=== PATIENT | female | born 1995 | race Caucasian/White ===

== ENCOUNTER → 2016-12-07 | Outpatient (CLI) | payer BC ==
[~2016-12-07] MED LIST: ACET-2267 PO; BENZ56AE2 TP; DOCU100C37 PO; DOXY100T2 PO; FERR-74 PO; HYDR-3812 PO; IBUP-1773 PO; IBUP-30 PO; MAGN100T6 PO; NA P133E35 PR; ONDA-42 SL; ONDN4T PO; POLY17PO23 GT; PREN1TAB19 PO; PREN1TAB25 PO; SCR1T1 PO; SULF1TAB35 PO
--- NOTE | 2016-12-07 22:36 | Diagnostic Imaging Report ---
Bilateral breast ultrasound. INDICATION: Left nipple inversion. FINDINGS: The retroareolar region and four quadrants of each breast were scanned with no underlying abnormality seen. IMPRESSION: Negative study. Mammography is pending. ACR BI-RADS Category 0: Incomplete. (Needs additional imaging evaluation). Dictated by: Dictated on workstation # [id number]
--- NOTE | 2016-12-07 22:46 | Diagnostic Imaging Report ---
Bilateral diagnostic mammogram. The current study was also evaluated with a Computer Aided Detection (CAD) system. INDICATION: Nipple inversion on the left progressively worsening for one and a half years. No prior studies are available for comparison. This is a baseline study. FINDINGS: The breasts are composed of extremely dense parenchyma which would decrease mammographic sensitivity. There is no discrete mass or suspicious cluster of calcification or architectural distortion identified. IMPRESSION: Extremely dense breasts with no definite focal lesion identified. Ultrasound evaluation was also performed with no underlying abnormality seen. Given the progressive unilateral nipple inversion, an MRI of the breast is recommended for further evaluation. ACR BI-RADS Category 0: Incomplete. (Needs additional imaging evaluation). Result letter will be mailed to the patient. Note: At least 10% of breast cancer is not imaged by mammography. Dictated by: Dictated on workstation # [id number]
== END ==
LOC: RAD 06:48
PROVIDERS: ATTEND Surgery
DX: N64.59 Other signs and symptoms in breast (principal); R92.8 Other abnormal and inconclusive findings on diagnostic imaging of breast
CPT/HCPCS: 77066

== ENCOUNTER 2017-01-24 03:23 | Emergency (ER) | payer BC ==
[~2017-01-24] VITALS: Ht 170.2 cm; Wt 81.6 kg
[2017-01-24] MEDS ORDERED: HYOSCYAMINE 0.125 MG (LEVSIN) TAB ONE (03:29)
[2017-01-24] MEDS ORDERED: PANTOPRAZOLE 40 MG/10 ML (PROTONIX) VIAL ONE (03:29)
[2017-01-24] MEDS ORDERED: ONDANSETRON 4 MG/2 ML (SDV) Z0FRAN ONE (03:29)
[2017-01-24] MEDS ORDERED: ONDANSETRON 4 MG/2 ML (SDV) Z0FRAN IVP ONE (03:30)
[2017-01-24] MEDS ORDERED: LACTATED RINGERS 1,000 ML IV ONE ×2 (03:30→03:33)
[2017-01-24] MEDS ORDERED: HYOSCYAMINE 0.125 MG (LEVSIN) TAB SL ONE (03:30)
[2017-01-24 03:37] LABS: BASOPHILS % (AUTO) 0 % (0-10); EOSINOPHILS # (AUTO) 0.1 10^3/uL (0.0-0.3); EOSINOPHILS % (AUTO) 1 % (0-10); LYMPHOCYTES # (AUTO) 3.2 X 10^3 (1.0-4.0); LYMPHOCYTES % (AUTO) 28 % (12-44); MEAN CORPUSCULAR HEMOGLOBIN 26 PG (25-34); MEAN CORPUSCULAR HGB CONC 33 G/DL (32-36); MEAN CORPUSCULAR VOLUME 78 FL (80-99); MEAN PLATELET VOLUME 9.2 FL (7.4-10.4); MONOCYTES # (AUTO) 0.7 X 10^3 (0.0-1.0); MONOCYTES % (AUTO) 6 % (0-12); NEUTROPHILS # (AUTO) 7.5 X 10^3 (1.8-7.8); NEUTROPHILS % (AUTO) 65 % (42-75); PLATELET COUNT 284 10^3/uL (130-400); RED BLOOD COUNT 5.22 10^6/uL (4.35-5.85); RED CELL DISTRIBUTION WIDTH 14.6 % (10.0-14.5); WHITE BLOOD COUNT 11.5 10^3/uL (4.3-11.0)
[2017-01-24] MEDS ORDERED: PANTOPRAZOLE 40 MG/10 ML (PROTONIX) VIAL IV ONE (03:45)
[2017-01-24] MEDS ORDERED: diphenhydrAMINE 50 MG/ML INJ (BENADRYL) IVP ONE (03:45)
[2017-01-24] MEDS ORDERED: PROMETHAZINE INJ 25 MG/ML (PHENERGAN) AMP IVP ONE (03:45)
[2017-01-24] MEDS ORDERED: diphenhydrAMINE 50 MG/ML INJ (BENADRYL) ONE (03:50)
[2017-01-24] MEDS ORDERED: PROMETHAZINE INJ 25 MG/ML (PHENERGAN) AMP ONE (03:50)
--- NOTE | 2017-01-24 03:51 | ED Abdominal Pain ---
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 patient denies n/v Sepsis Screen: No Definite Risk Source of Information: Patient History of Present Illness Time Seen By Provider: 03:23 Initial Comments PT ARRIVES VIA POV FROM HOME STATES SHE WOKE UP AN HOUR AGO WITH SEVERE, SHARP EPIGASTRIC PAIN THAT RADIATES STRAIGHT THROUGH TO BACK NO NAUSEA/VOMITING/DIARRHEA--HAD A NORMAL BM AN HOUR AGO WITHOUT IMPROVEMENT IN PAIN NO FEVER NO URINARY SYMPTOMS NO HISTORY OF SIMILAR ATE FRITO CHILI PIE AT 1800 LAST EVENING LMP 01/17/17--NORMAL. NO CONTROL. PCP: DR. POPE Allergies and Home Medications Allergies Coded Allergies: morphine (Verified Allergy, Unknown, 07/23/16) Review of Systems Constitutional: diaphoresis, No fever EENTM: No Symptoms Reported Respiratory: No Symptoms Reported Cardiovascular: No Symptoms Reported Gastrointestinal: See HPI, Abdominal Pain, Denies Constipated, Denies Diarrhea , Denies Nausea, Denies Poor Appetite, Denies Poor Fluid Intake, Denies Vomiting Genitourinary: No Symptoms Reported Musculoskeletal: see HPI, back pain Skin: no symptoms reported Psychiatric/Neurological: Anxiety Endocrine: No Symptoms Reported Hematologic/Lymphatic: No Symptoms Reported Past Bokfbkt-Ncuapv-Zbaxje Hx Patient Social History Alcohol Use: Denies Use Recreational Drug Use: No Smoking Status: Never a Smoker Recent Foreign Travel: No Contact w/Someone Who Travel: No Recent Infectious Disease Expo: No Recent Hopitalizations: No Immunizations Up To Date Tetanus Booster (TDap): Unknown PED Vaccines UTD: No Seasonal Allergies Seasonal Allergies: No Surgeries HX Surgeries: Yes (INTESTINAL SURGERIES ; RIGHT SALPINGO-OOPHORECTOMY FOR OVARIAN CYST) Surgeries: Abdominal, Bowel Surgery, Oophorectomy Respiratory Hx Respiratory Disorders: No Cardiovascular Hx Cardiac Disorders: No Neurological Hx Neurological Disorders: No Reproductive System : No Hx Reproductive Disorders: No Sexually Transmitted Disease: No HIV/AIDS: No Female Reproductive Disorders: Denies Genitourinary Hx Genitourinary Disorders: No Gastrointestinal Hx Gastrointestinal Disorders: Yes (INTESTINAL SURGERIES INFANT) Gastrointestinal Disorders: Gastroesophageal Reflux Musculoskeletal Hx Musculoskeletal Disorders: No Endocrine Hx Endocrine Disorders: No HEENT HX ENT Disorders: No Cancer Hx Cancer: No Psychosocial Hx Psychiatric Problems: No Integumentary HX Skin/Integumentary Disorder: No Blood Transfusions Hx Blood Disorders: Yes (hx of anemia) Adverse Reaction to a Blood Tr: No Family Medical History Significant Family History: No Pertinent Family Hx Family Medial History: Physical Exam Vital Signs VS - Last 72 Hours, by Label 01/24/17 03:25 Temp 96.2 Pulse 107 Resp 24 B/P (MAP) Pulse Ox 100 O2 Delivery Room Air Capillary Refill : Less Than 3 Seconds General Appearance: other (EXTREMELY DRAMATIC, WAILING/ MOANING VERY LOUDLY, THRASHING ALL OVER, HOLDING EPIGASTRIC AREA.VERY ANXIOUS AND HYPERVENTILATING. 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, no motor/sensory deficits, alert, oriented x 3, other (ANXIOUS, HYPERVENTILATING) Skin: normal color, diaphoresis Progress/Results/Core Measures Results/Orders Lab Results Laboratory Tests Test 01/24/17 03:29 Range/Units White Blood Count 11.5 H 4.3-11.0 10^3/uL Red Blood Count 5.22 4.35-5.85 10^6/uL Hemoglobin 13.4 11.5-16.0 G/DL Hematocrit 41 35-52 % Mean Corpuscular Volume 78 L 80-99 FL Mean Corpuscular Hemoglobin 26 25-34 PG Mean Corpuscular Hemoglobin Concent 33 32-36 G/DL Red Cell Distribution Width 14.6 H 10.0-14.5 % Platelet Count 284 130-400 10^3/uL Mean Platelet Volume 9.2 7.4-10.4 FL Neutrophils (%) (Auto) 65 42-75 % Lymphocytes (%) (Auto) 28 12-44 % Monocytes (%) (Auto) 6 0-12 % Eosinophils (%) (Auto) 1 0-10 % Basophils (%) (Auto) 0 0-10 % Neutrophils # (Auto) 7.5 1.8-7.8 X 10^3 Lymphocytes # (Auto) 3.2 1.0-4.0 X 10^3 Monocytes # (Auto) 0.7 0.0-1.0 X 10^3 Eosinophils # (Auto) 0.1 0.0-0.3 10^3/uL Basophils # (Auto) 0.0 0.0-0.1 10^3/uL Sodium Level 142 135-145 MMOL/L Potassium Level 3.8 3.6-5.0 MMOL/L Chloride Level 108 H 98-107 MMOL/L Carbon Dioxide Level 19 L 21-32 MMOL/L Anion Gap 15 H 5-14 MMOL/L Blood Urea Nitrogen 14 7-18 MG/DL Creatinine 0.82 0.60-1.30 MG/DL Estimat Glomerular Filtration Rate > 60 BUN/Creatinine Ratio 17 Glucose Level 113 H 70-105 MG/DL Calcium Level 9.2 8.5-10.1 MG/DL Total Bilirubin 0.3 0.1-1.0 MG/DL Aspartate Amino Transf (AST/SGOT) 26 5-34 U/L Alanine Aminotransferase (ALT/SGPT) 19 0-55 U/L Alkaline Phosphatase 150 H 40-136 U/L Total Protein 7.3 6.4-8.2 G/DL Albumin 4.1 3.2-4.5 G/DL Amylase Level 60 25-125 U/L Lipase 35 8-78 U/L Serum Test, Qualitative NEGATIVE NEGATIVE Serum Alcohol < 10 <10 MG/DL My Orders Orders - YUN BOONE DO Accucheck Stat ONCE (01/24/17 03:30) Alcohol (01/24/17 03:30) Amylase (01/24/17 03:30) Cbc With Automated Diff (01/24/17 03:30) Comprehensive Metabolic Panel (01/24/17 03:30) Hcg,Qualitative Serum (01/24/17 03:30) Lipase (01/24/17 03:30) Ua Culture If Indicated (01/24/17 03:30) Ondansetron Injection (Zofran Injectio (01/24/17 03:30) Hyoscyamine Sl Tablet (Levsin Sl Tablet) (01/24/17 03:30) Saline Lock/Iv-Start (01/24/17 03:30) Lactated Ringers (Lr 1000 Ml Iv Solution (01/24/17 03:30) Pantoprazole Injection (Protonix Injecti (01/24/17 03:45) Ondansetron Injection (Zofran Injectio (01/24/17 03:29) Pantoprazole Injection (Protonix Injecti (01/24/17 03:29) Hyoscyamine Sl Tablet (Levsin Sl Tablet) (01/24/17 03:29) Lactated Ringers (Lr 1000 Ml Iv Solution (01/24/17 03:33) Promethazine Injection (Phenergan Injec (01/24/17 03:45) Diphenhydramine Injection (Benadryl Inje (01/24/17 03:45) Ct Abdomen/Pelvis W (01/24/17 04:05) Iohexol Injection (Omnipaque 350 Mg/Ml 1 (01/24/17 04:30) Ns (Ivpb) (Sodium Chloride 0.9% Ivpb Bag (01/24/17 04:30) Medications Given in ED Current Medications Medications Dose Ordered Sig/Roma Route Start Time Stop Time Status Last Admin Dose Admin Hyoscyamine Sulfate 0.25 mg ONCE ONCE SL 01/24/17 03:30 01/24/17 03:33 DC 01/24/17 03:34 0.25 MG Lactated Ringer's 1,000 ml @ 0 mls/hr Q0M ONCE IV 01/24/17 03:30 01/24/17 03:33 DC 01/24/17 03:37 0 MLS/HR Ondansetron HCl 8 mg ONCE ONCE IVP 01/24/17 03:30 01/24/17 03:33 DC 01/24/17 03:34 8 MG Pantoprazole 40 mg ONCE ONCE IV 01/24/17 03:45 01/24/17 03:46 DC 01/24/17 03:34 40 MG Vital Signs/I&O Vital Sign - Last 12Hours 01/24/17 03:25 Temp 96.2 Pulse 107 Resp 24 B/P (MAP) Pulse Ox 100 O2 Delivery Room Air Progress Note : Progress Note 0350--PT BEGAN VOMITING AND THEN PAIN AND ALL SYMPTOMS RESOLVED AFTER SHE VOMITED. NO SYMPTOMS FOR REMAINDER OF ER STAY JUST PRIOR TO DISMISSAL, PT NOW STATES THIS HAS HAPPENED SEVERAL TIMES, BUT HAS NEVER LASTED THIS LONG--THE LONGEST HAS BEEN ABOUT 20 MINUTES--NEVER SOUGHT CARE Diagnostic Imaging Comments CT ABDOMEN/PELVIS--NO ACUTE PROCESS, NON-SPECIFIC SMALL MESENTERIC LYMPH NODES-- PER [facility] VIA FAX @ 8527 Reviewed: Reviewed by Me Departure Impression Impression: Primary Impression: Epigastric abdominal pain Additional Impression: POSSIBLE GASTROENTERITIS Disposition: HOME, SELF-CARE Condition: Improved Departure-Patient Inst. Referrals: GISELE POPE DO (PCP/Family) Primary Care Physician Patient Instructions: Acute Abdomen (Belly Pain), Adult (DC), GASTROENTERITIS- 6Y-ADULT Add. Discharge Instructions: CLEAR LIQUIDS--WATER, BROTH, JELLO, GATORADE TOMORROW IF YOU ARE BETTER, ADD BRATS DIET TO CLEAR LIQUIDS--BANANAS, RICE, APPLESAUCE, TOAST, SALTINES FOLLOW UP WITH DR. POPE IN 1-2 DAYS IF NO BETTER RETURN TO ER IF WORSE All discharge instructions reviewed with patient and/or family. Voiced understanding. Scripts Ondansetron (Zofran Odt) 4 Mg Tab.rapdis 4 MG PO Q4H for Nausea/Vomiting, #10 TAB Prov: YUN BOONE DO 01/24/17 Hyoscyamine Sulfate (Levsin-Sl) 0.125 Mg Tab.subl 1-2 TAB SL Q4H for Abdominal Pain, #10 TAB Prov: YUN BOONE DO 01/24/17 YUN BOONE DO January 24, 2017 03:51
[2017-01-24 03:55] LABS: ALANINE AMINOTRANSFERASE 19 U/L (0-55); ALBUMIN 4.1 G/DL (3.2-4.5); AMYLASE 60 U/L (25-125); ANION GAP 15 MMOL/L (5-14); ASPARTATE AMINO TRANSFERASE 26 U/L (5-34); BILIRUBIN,TOTAL 0.3 MG/DL (0.1-1.0); BLOOD UREA NITROGEN 14 MG/DL (7-18); BUN/CREATININE RATIO 17; CALCIUM 9.2 MG/DL (8.5-10.1); CARBON DIOXIDE 19 MMOL/L (21-32); CHLORIDE 108 MMOL/L (98-107); CREATININE SERUM 0.82 MG/DL (0.60-1.30); GFR ESTIMATED > 60; GLUCOSE 113 MG/DL (70-105); LIPASE 35 U/L (8-78); POTASSIUM 3.8 MMOL/L (3.6-5.0); SODIUM 142 MMOL/L (135-145); TOTAL PROTEIN 7.3 G/DL (6.4-8.2)
[2017-01-24 04:04] LABS: ALCOHOL < 10 MG/DL (<10)
[2017-01-24] MEDS ORDERED: IOHEXOL 350 MG/ML 100 ML (OMNIPAQUE 350) VIAL IV ONE (04:30)
[2017-01-24] MEDS ORDERED: NS 100 ML (IVPB) BAG IV ONE (04:30)
[2017-01-24] MEDS ORDERED: HYOS0.1283 SL (05:16)
[2017-01-24] MEDS ORDERED: ONDA4TAB8 PO (05:16)
[2017-01-24 05:34] LABS: BILIRUBIN,URINE NEGATIVE (NEGATIVE); KETONES,URINE NEGATIVE (NEGATIVE); LEUKOCYTE ESTERASE ,URINE NEGATIVE (NEGATIVE); NITRITE,URINE NEGATIVE (NEGATIVE); PH,URINE 7 (5-9); PROTEIN,URINE NEGATIVE (NEGATIVE); UROBILINOGEN,URINE NORMAL (NORMAL)
[2017-01-24 05:50] VITALS: BP 149/88
[2017-01-24 05:51] LABS: SQUAMOUS EPITHELIAL CELL,UR 0-2 /HPF
--- NOTE | 2017-01-24 08:09 | Diagnostic Imaging Report ---
PROCEDURE: CT abdomen and pelvis with contrast. TECHNIQUE: Multiple contiguous axial images were obtained through the abdomen and pelvis after administration of intravenous contrast. INDICATION: Abdominal pain. Previous surgeries. Exam compared 11/17/2012. FINDINGS: Trace pelvic free fluid is a common finding in a female patient of this age and likely physiologic isolated to the cul-de-sac. The uterus, adnexa, and urinary bladder unremarkable. No pericecal inflammatory changes were found. Right ovary could not be identified. There is questionable visualization of the appendix. No findings to suggest appendicitis. No other potential appendiceal candidate was found. The liver, biliary ducts, spleen, adrenals, and pancreas are negative. There are no stones within the gallbladder lumen. No convincing abnormal lymph nodes within the abdominal/ pelvic mesentery or retroperitoneum. No suspicious mass. No pneumatosis or free air. There is no evidence for bowel, biliary, or urinary tract obstruction. The aortoiliac and mesenteric vessels patent and nonaneurysmal. The osseous structures nonacute. Lung bases negative. IMPRESSION: There is no obstructive process, focal inflammatory changes, or acute abnormalities identified at this exam. I agree with the preliminary. Dictated by: Dictated on workstation # [id number]
== END 2017-01-24 05:56 | disposition home or self-care (01) ==
LOC: EDUNIT# 03:23 → ER 03:25
DX: R10.13 Epigastric pain (principal); R11.2 Nausea with vomiting, unspecified
CPT/HCPCS: 36415; 74177; 80053; 80320; 81000; 82150; 83690; 84703; 85025; 96361; 96374

== ENCOUNTER → 2017-01-25 | Outpatient (CLI) | payer BC ==
[~2017-01-25] MED LIST changes: +DIATRIZOATE MEGLUM/SODIUM 37% 120 ML (GASTROGRAFIN) PO ONE; +HYOS0.1283 SL; +ONDA4TAB8 PO
--- NOTE | 2017-01-25 10:53 | Diagnostic Imaging Report ---
EXAMINATION: Barium small bowel follow through. INDICATION: Generalized abdominal pain. TECHNIQUE: Water Mangle Tender image of the abdomen was performed. Subsequently, the patient was given barium orally and serial images of the abdomen were obtained. FINDINGS: Water Mangle Tender image of the abdomen demonstrates small amount of fecal material. No significant abnormality. There is prompt gastric emptying into the small bowel loops. There is a transient time through the small bowel of 45 minutes. The small bowel caliber and fold pattern and thickness are normal. The terminal ileum appears normal. There are no filling defects seen. IMPRESSION: Unremarkable small bowel follow through. Dictated by: Dictated on workstation # [id number]
== END ==
LOC: RAD 07:42
PROVIDERS: ATTEND Internal Medicine
DX: R10.84 Generalized abdominal pain (principal)
CPT/HCPCS: 74250

== ENCOUNTER → 2017-02-03 | Outpatient (CLI) | payer BC ==
[~2017-02-03] MED LIST changes: -DIATRIZOATE MEGLUM/SODIUM 37% 120 ML (GASTROGRAFIN) PO ONE
--- NOTE | 2017-02-09 09:13 | Diagnostic Imaging Report ---
PROCEDURE: US Gallbladder. TECHNIQUE: Multiple real-time grayscale images were obtained over the right upper quadrant in various projections. INDICATION: Epigastric pain. FINDINGS: The visualized portions of the pancreas appear unremarkable. The liver is fairly homogeneous with no focal lesion. There is hepatopetal flow in the portal vein. The CBD is 0.6 cm in caliber. The gallbladder demonstrates multiple stones. There is no wall thickening or pericholecystic fluid seen. The sonographic Ramírez sign is reportedly negative. The right kidney is 10.9 cm in length with no hydronephrosis or focal lesion. No free fluid or fluid collection in the right upper quadrant seen. IMPRESSION: Cholelithiasis. Dictated by: Dictated on workstation # [id number]
== END ==
LOC: RAD 06:49
PROVIDERS: ATTEND Surgery
DX: R10.13 Epigastric pain (principal)
CPT/HCPCS: 76705

== ENCOUNTER 2017-02-09 15:28 | Outpatient (CLI) | payer BC ==
[~2017-02-09] VITALS: Ht 170.2 cm; Wt 81.6 kg
[2017-02-10] MEDS ORDERED: HYDR-3812 PO ×2 (08:55)
[2017-02-10] MEDS ORDERED: DOCU-143 PO ×2 (08:55)
== END 2017-02-09 15:47 ==
LOC: PREOP 15:28
PROVIDERS: ATTEND Surgery
DX: Z01.818 Encounter for other preprocedural examination (principal); K80.20 Calculus of gallbladder without cholecystitis without obstruction

== ENCOUNTER 2017-02-10 07:44 | Day surgery (SDC) | payer BC ==
[~2017-02-10] VITALS: Ht 170.2 cm; Wt 81.6 kg
[2017-02-10] MEDS ORDERED: LIDOCAINE 1% INJ 20 ML (XYLOCAINE) VIAL ONE (08:01)
[2017-02-10] MEDS ORDERED: BUPIVACAINE 0.5% 30 ML (SENSORCAINE) VIAL ONE (08:01)
[2017-02-10] MEDS ORDERED: ROCURONIUM 50 MG/5 ML (ZEMURON) VIAL IV ONE (08:14)
[2017-02-10] MEDS ORDERED: LACTATED RINGERS 1,000 ML IV ONE ×2 (08:14→10:30)
[2017-02-10] MEDS ORDERED: SEVOFLURANE (ULTANE) 15 ML INHAL SOLN ONE ×6 (08:14→10:47)
[2017-02-10] MEDS ORDERED: ONDANSETRON 4 MG/2 ML (SDV) Z0FRAN ONE (08:14)
[2017-02-10] MEDS ORDERED: DEXAMETHASONE PF 10 MG/ML (DECADRON) VIAL ONE (08:14)
[2017-02-10] MEDS ORDERED: LIDOCAINE PF 2% 5 ML (XYLOCAINE) VIAL ONE (08:14)
[2017-02-10] MEDS ORDERED: proPOfol 200 MG/20 ML (DIPRIVAN) VIAL IV ONE (08:14)
[2017-02-10] MEDS ORDERED: fentaNYL INJECTION 100 MCG/2 ML AMP ONE (08:15)
[2017-02-10] MEDS ORDERED: MIDAZOLAM 2 MG/2 ML (VERSED) VIAL ONE (08:15)
[2017-02-10] MEDS ORDERED: ONDANSETRON 4 MG/2 ML (SDV) Z0FRAN IVP PRN ×2 (08:30→09:30)
[2017-02-10] MEDS ORDERED: MEPERIDINE (DEMEROL) INJ 50 MG/ML IVP PRN (08:30)
[2017-02-10] MEDS ORDERED: ceFAZolin 2 GM/50 ML NS 50 ML ONE (08:35)
[2017-02-10] MEDS: LACTATED RINGERS 1,000 ML IV PRN ×2 (08:45→11:09)
[2017-02-10] MEDS ORDERED: ceFAZolin 2 GM/NS 50 ML IV ONE (08:45)
[2017-02-10] MEDS ORDERED: DOCU-143 PO ×2 (08:55)
[2017-02-10] MEDS ORDERED: HYDR-3812 PO ×2 (08:55)
--- NOTE | 2017-02-10 08:56 | Discharge Inst-Simple/Standard ---
Discharge Inst-Standard Discharge Medications New, Converted or Re-Newed RX: RX on Chart Patient Instructions/Follow Up Plan of Care/Instructions/FU: Follow up with Dr. Stark in 2 weeks Activity as Tolerated: No Discharge Diet: No Restrictions Other Inst to Patient Follow up Appt: Make appointment for 2 weeks. Instructions: No lifting greater than 10 pounds. No strenuous activity. May shower in 24 hours, no tub bath or soaking. Use incentive spirometer at home as directed. No Smoking Skin/Wound Care: May remove bandages. You need to leave the white strips over incision on they will fall off on their own. Symptoms to Report: Appetite Changes, Extremity Discoloration, Numbness/Tingling, Swelling Increased , Bleeding Excessive, Eyesight Changes, Pain Increased, Urine Color Change, Constipation(Persistent), Fever over 101 degree F, Pain/Pressure in chest, Urinating Difficulty, Cough Up/Vomit Blood, Heart Beat Irreg/Pounding, Pain/ Pressure in jaw, Vaginal Bleeding Increase, Cramps in feet or legs, Lightheadedness, Pain/Pressure in shoulder, Diarrhea(Persistent), Memory Changes Suddenly, Questions/Concerns, Weight gain consecutive days, Dizziness/ Fainting, Nausea/Vomiting, Shortness of Breath, Weight gain over 2 pounds. If eyes or skin turn yellow notify physician. If questions or concerns contact your physician Or seek help at emergency department. APRIL VAZQUEZ APRN Feb 10, 2017 08:56
--- NOTE | 2017-02-10 09:03 | Progress Note-Pre Operative ---
Pre-Operative Progress Note H&P Reviewed The H&P was reviewed, patient examined and no changes noted. Date H&P Reviewed: Feb 10, 2017 Time H&P Reviewed: 09:02 Pre-Operative Diagnosis: symptomatic cholelithiasis OSCAR MOLINA DO Feb 10, 2017 9:03 am
[2017-02-10 09:21] VITALS: BP 112/69
[2017-02-10] MEDS ORDERED: KETOROLAC 30 MG/ML VIAL IVP ONE (09:30)
[2017-02-10] MEDS ORDERED: fentaNYL INJECTION 100 MCG/2 ML AMP IVP PRN (09:30)
--- NOTE | 2017-02-10 10:57 | Progress Note-Post Operative ---
Post-Operative Progess Note Surgeon (s)/Blacktop Paver Operator (s) Surgeon OSCAR MOLINA DO Blacktop Paver Operator: Dr. Muro Pre-Operative Diagnosis symptomatic cholelithiasis Post-Operative Diagnosis symptomatic cholelithiasis, stone in cystic duct Procedure & Operative Findings Date of Procedure 02/10/17 Procedure Performed/Findings lap deuce c ioc 40 min lysis of adhesions removal of stone in cystic duct Anesthesia Type general Estimated Blood Loss Estimated blood loss (mL): minimal Specimens/Packing Specimens Removed gallbladder OSCAR MOLINA DO Feb 10, 2017 10:56 am
[2017-02-10] MEDS ORDERED: KETOROLAC 30 MG/ML VIAL ONE (11:21)
[2017-02-10] MEDS: fentaNYL INJECTION 100 MCG/2 ML AMP IVP PRN ×2 (11:44→11:55)
[2017-02-10 12:25] VITALS: BP 119/70
[2017-02-10 12:55] VITALS: BP 132/70
[2017-02-10] MEDS ORDERED: HYDROcodone/APAP 5 MG/325 MG (LORTAB) TAB PO ONE (13:00)
[2017-02-10 13:25] VITALS: BP 120/73
--- NOTE | 2017-02-10 19:25 | Diagnostic Imaging Report ---
EXAMINATION: Intraoperative radiographs of the abdomen. INDICATION: Search for needle. FLUOROSCOPY TIME: 6 seconds. FINDINGS: Surgical clips in the upper right abdomen are seen. No radiopaque needle is identified. IMPRESSION: Cholecystectomy clips are seen. No other foreign bodies. Dictated by: Dictated on workstation # [id number]
--- NOTE | 2017-02-10 19:43 | Diagnostic Imaging Report ---
EXAMINATION: Intraoperative cholangiogram. 2.5 cc Omnipaque 300 was utilized. INDICATION: Abdominal pain. EXAMINATION: Laparoscopic cholecystectomy performed by Dr. Stark. FLUOROSCOPY TIME: 1.4 seconds. FINDINGS: The CBD is normal in caliber. There is prompt passage of contrast into the duodenum. There is a filling defect with smooth margins overlying the upper CBD level which is probably related to the balloon inflated in the cystic duct. Dr. Stark believes that the balloon has slipped into the CBD resulting in this finding. This portion of the CBD cannot be evaluated on this exam. IMPRESSION: No CBD obstruction. Filling defect in the upper CBD is believed to be related to the balloon used as discussed above. This portion of the CBD cannot be evaluated on this exam. This was discussed with Dr. Stark before this dictation. Dictated by: Dictated on workstation # [id number]
--- NOTE | 2017-02-10 20:53 | OPERATIVE REPORT ---
DATE OF SERVICE: 02/10/2017 PREOPERATIVE DIAGNOSIS: Symptomatic cholelithiasis. POSTOPERATIVE DIAGNOSES: Cholelithiasis, multiple intra-abdominal adhesions and stone within the cystic duct. PROCEDURES PERFORMED: Laparoscopic cholecystectomy with intraoperative cholangiogram, 40 minutes of lysis of adhesions and removal of stone from cystic duct. SURGEON: Oscar Stark DO HEALTHCARE PROF: Dr. Muro assisted in retraction, dissection and closure. ANESTHESIA: General. ESTIMATED BLOOD LOSS: Minimal. COMPLICATIONS: None. INDICATIONS: The patient is a 21-year-old female who has been having abdominal pain. Her symptoms were consistent with cholelithiasis. She had an ultrasound demonstrating gallbladder stones. She was explained risks and benefits of procedure and wished to proceed with procedure. Consent was signed and on the chart. DESCRIPTION OF PROCEDURE: The patient was taken to the operating suite. She was prepped and draped in sterile fashion. Surgical pause was performed. The patient had large incision to the right lateral aspect of the umbilicus; therefore, it was determined to go into the left upper quadrant. A 5 mm incision was made. A Veress needle was inserted into the abdomen and pneumoperitoneum was achieved. Under direct visualization of the laparoscope, a 5 mm trocar was then placed. There were multiple adhesions within the abdominal cavity. The scope was used to bluntly take some of these down to where the right side of the abdomen was able to be visualized and two 5 mm trocars were then able to be placed. A LigaSure was used to continue to take down these multiple adhesions. There were some loops of small bowel that were adherent up to the abdominal wall, which were able to be bluntly taken down and also using LigaSure to cut the adhesions. Once a window was created at the umbilicus, a 10 mm trocar was then placed under direct visualization of the laparoscope. The adhesions were continued up above the liver and also along the lateral aspect of the right liver, which had it very adherent to the abdominal wall. These adhesions were taken down with blunt and LigaSure dissection. The gallbladder was able to be visualized. There was omentum that was extremely adherent to the gallbladder and to the liver. LigaSure and [place] dissection and cautery were used to take down these adhesions. The gallbladder was then able to be elevated above the liver. The cystic duct was then dissected out along with the cystic artery. Clips were placed on the proximal and distal portion of the cystic artery. The clips were then also placed on the distal portion of the cystic duct. The cystic duct was then partially transected. Within the cystic duct, there was a stone, which was manipulated out of the cystic duct. At this time, the Arrow catheter was then inserted into the cystic duct. The balloon was insufflated and cholangiogram was performed. The balloon was visualized within the common bile duct. There are no stones visualized within the common bile duct or any other branches of the right hepatic and left hepatic duct, but the balloon was visualized within the common bile duct. Contrast made its way into the duodenum without difficulty. The balloon was then desufflated. The catheter was removed. Clips were placed on the proximal portion of the cystic duct, and the duct and the artery were then completely transected. Hook cautery was used to dissect the gallbladder from the gallbladder fossa achieving hemostasis. Once removed, the gallbladder was placed in an Endobag and removed through the 10 mm trocar site. The abdomen was then irrigated with copious amounts of irrigation. Using an Endoclose and 0 Vicryl, the 10 mm fascial defect was closed. The abdomen was then desufflated. The trocars were removed. The skin was then closed using 4-0 Vicryl in a subcuticular fashion. The area was then washed and dried. Mastisol and Steri-Strips were applied. Sterile bandages were applied. The patient tolerated the procedure well without any complications. She was taken to recovery room in stable condition. Job ID: [id number] DocumentID: [id number] Dictated Date: 02/10/2017 14:30:36 Armature Straightener Date: 02/10/2017 20:52:07 Dictated By: OSCAR STARK DO
== END 2017-02-10 13:50 | disposition home or self-care (01) ==
LOC: SDC 07:44
PROVIDERS: ATTEND Surgery
DX: K80.10 Calculus of gallbladder with chronic cholecystitis without obstruction (principal)
CPT/HCPCS: 84703; 87081; 88304; 94664

== ENCOUNTER 2017-09-21 09:31 | Inpatient (IN) | payer BC ==
[~2017-09-21] VITALS: Ht 165.1 cm; Wt 81.6 kg
[~2017-09-21 09:31] MED LIST changes: +ACHD5005 PO; +DOCU-143 PO; -FERR-74 PO; +FERR325T18 PO; -HYDR-3812 PO
[2017-09-21] MEDS ORDERED: LACTATED RINGERS 1,000 ML IV ONE (09:59)
[2017-09-21] MEDS ORDERED: HYOSCYAMINE 0.125 MG (LEVSIN) TAB SL ONE (10:00)
[2017-09-21] MEDS ORDERED: IRON SUPPLEMENT (10:01)
[2017-09-21 10:05] LABS: BASOPHILS % (AUTO) 0 % (0-10); EOSINOPHILS # (AUTO) 0.1 10^3/uL (0.0-0.3); EOSINOPHILS % (AUTO) 1 % (0-10); HEMATOCRIT 44 % (35-52); LYMPHOCYTES # (AUTO) 1.2 X 10^3 (1.0-4.0); LYMPHOCYTES % (AUTO) 13 % (12-44); MEAN CORPUSCULAR HEMOGLOBIN 27 PG (25-34); MEAN CORPUSCULAR HGB CONC 34 G/DL (32-36); MEAN CORPUSCULAR VOLUME 79 FL (80-99); MEAN PLATELET VOLUME 9.5 FL (7.4-10.4); MONOCYTES # (AUTO) 0.6 X 10^3 (0.0-1.0); MONOCYTES % (AUTO) 6 % (0-12); NEUTROPHILS % (AUTO) 81 % (42-75); PLATELET COUNT 255 10^3/uL (130-400); RED BLOOD COUNT 5.59 10^6/uL (4.35-5.85); RED CELL DISTRIBUTION WIDTH 14.1 % (10.0-14.5); WHITE BLOOD COUNT 9.8 10^3/uL (4.3-11.0)
--- NOTE | 2017-09-21 10:07 | ED Abdominal Pain ---
General Chief Complaint: Abdominal/GI Problems Stated Complaint: ABD PAIN Nursing Triage Note: PT CO OF ABD PAIN DIFFUSE 8/ STARTED LAST PM 1830, DENIES N/V DID HAVE DIARRHEA X1 THIS AM. 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 HAD CHOLECYSTECTOMY IN 2017 BY , WHICH WAS HER MOST RECENT ABDOMINAL SURGERY LMP 08/26/17, NORMAL. NO CONTROL. HAS NOT TAKEN ANYTHING FOR PAIN LAST FOOD INTAKE WAS 1400 YESTERDAY, HAS BEEN TAKING SIPS OF WATER PCP: DR. POPE SURGEON: DR. MOLINA Allergies and Home Medications Allergies Coded Allergies: morphine (Verified Allergy, Unknown, 07/23/16) Home Medications [Iron Supplement] , (Reported) Review of Systems Constitutional: no symptoms reported Respiratory: No Symptoms Reported Cardiovascular: No Symptoms Reported Gastrointestinal: See HPI, Abdomen Distended, Abdominal Pain, Diarrhea, Denies Nausea, Poor Appetite, Denies Vomiting Genitourinary: No Symptoms Reported Musculoskeletal: no symptoms reported Skin: no symptoms reported Psychiatric/Neurological: No Symptoms Reported Endocrine: No Symptoms Reported Hematologic/Lymphatic: No Symptoms Reported Past Yertsqt-Dhqkll-Vzlrpk Hx Patient Social History Alcohol Use: Denies Use Recreational Drug Use: No Smoking Status: Never a Smoker Recent Foreign Travel: No Contact w/Someone Who Travel: No Recent Infectious Disease Expo: No Recent Hopitalizations: No Physical Abuse: No Sexual Abuse: No Immunizations Up To Date Tetanus Booster (TDap): Unknown PED Vaccines UTD: No Seasonal Allergies Seasonal Allergies: No Surgeries History of Surgeries: Yes (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"; REPAIR OF HOLE IN SMALL INTESTINE WHEN BORN; MULTIPLE COLON RESECTIONS FOR OBSTRUCTIONS--SINCE AGE 12; HERNIA SX x3 AT AGE 2 ; MULTIPLE SURGERIES FOR BOWEL OBSTRUCTIONS; RIGHT SALPINGO-OOPHORECTOMY FOR OVARIAN CYST) Surgeries: Abdominal, Bowel Surgery, Eye Surgery, Gallbladder, Oophorectomy Respiratory History of Respiratory Disorde: No Cardiovascular History of Cardiac Disorders: No Neurological History of Neurological Disord: No Reproductive System : No (LMP MID DEC) Hx Reproductive Disorders: No Sexually Transmitted Disease: No HIV/AIDS: No Female Reproductive Disorders: Denies, Ovarian Cyst Genitourinary History of Genitourinary Disor: No Gastrointestinal History of Gastrointestinal Di: Yes (INTESTINAL SURGERIES INFANT TO REPAIR HOLE IN INTESTINE; HERNIA REPAIRS X3 AT AGE 2 ; SURGERIES FOR BOWEL OBSTRUCTIONS SINCE AGE 12; C/P HARMAN) Gastrointestinal Disorders: Abdominal Hernia, Gastroesophageal Reflux, Obstructive Bowel, Gall Bladder Disease Musculoskeletal History of Musculoskeletal Dis: No Endocrine History of Endocrine Disorders: No HEENT History of HEENT Disorders: Yes (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 Hearing Impairment: Denies Cancer History of Cancer: No Psychosocial History of Psychiatric Problem: No Suicide Risk Score: 0 Integumentary History of Skin or Integumenta: No Blood Transfusions History of Blood Disorders: Yes (HX OF ANEMIA) Adverse Reaction to a Blood Tr: No Family Medical History Significant Family History: No Pertinent Family Hx Family Medial History: Physical Exam Vital Signs VS - Last 72 Hours, by Label 09/21/17 09:45 Temp 97.7 Pulse 103 Resp 18 B/P (MAP) 129/86 (100) Pulse Ox 97 Capillary Refill : Less Than 3 Seconds General Appearance: WD/WN, other (EXAGGERATED PAIN RESPONSE, LOOKS MILDLY UNCOMFORTABLE) Respiratory: normal breath sounds, no respiratory distress, no accessory muscle use Cardiovascular: regular rate, rhythm, no murmur Gastrointestinal: abnormal bowel sounds (HYPERACTIVE), distended, guarding, rebound, tenderness Extremities: normal inspection, no pedal edema, normal capillary refill Back: normal inspection, no CVA tenderness 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 Progress/Results/Core Measures Results/Orders Lab Results Laboratory Tests Test 09/21/17 09:50 09/21/17 10:05 Range/Units White Blood Count 9.8 4.3-11.0 10^3/uL Red Blood Count 5.59 4.35-5.85 10^6/uL Hemoglobin 15.0 11.5-16.0 G/DL Hematocrit 44 35-52 % Mean Corpuscular Volume 79 L 80-99 FL Mean Corpuscular Hemoglobin 27 25-34 PG Mean Corpuscular Hemoglobin Concent 34 32-36 G/DL Red Cell Distribution Width 14.1 10.0-14.5 % Platelet Count 255 130-400 10^3/uL Mean Platelet Volume 9.5 7.4-10.4 FL Neutrophils (%) (Auto) 81 H 42-75 % Lymphocytes (%) (Auto) 13 12-44 % Monocytes (%) (Auto) 6 0-12 % Eosinophils (%) (Auto) 1 0-10 % Basophils (%) (Auto) 0 0-10 % Neutrophils # (Auto) 8.0 H 1.8-7.8 X 10^3 Lymphocytes # (Auto) 1.2 1.0-4.0 X 10^3 Monocytes # (Auto) 0.6 0.0-1.0 X 10^3 Eosinophils # (Auto) 0.1 0.0-0.3 10^3/uL Basophils # (Auto) 0.0 0.0-0.1 10^3/uL Sodium Level 137 135-145 MMOL/L Potassium Level 3.8 3.6-5.0 MMOL/L Chloride Level 106 98-107 MMOL/L Carbon Dioxide Level 20 L 21-32 MMOL/L Anion Gap 11 5-14 MMOL/L Blood Urea Nitrogen 16 7-18 MG/DL Creatinine 0.78 0.60-1.30 MG/DL Estimat Glomerular Filtration Rate > 60 BUN/Creatinine Ratio 21 Glucose Level 105 70-105 MG/DL Calcium Level 9.0 8.5-10.1 MG/DL Total Bilirubin 0.8 0.1-1.0 MG/DL Aspartate Amino Transf (AST/SGOT) 17 5-34 U/L Alanine Aminotransferase (ALT/SGPT) 18 0-55 U/L Alkaline Phosphatase 132 40-136 U/L Total Protein 7.7 6.4-8.2 GM/DL Albumin 4.1 3.2-4.5 GM/DL Amylase Level 55 25-125 U/L Lipase 20 8-78 U/L Urine Color YELLOW Urine Clarity CLEAR Urine pH 5 5-9 Urine Specific Jackson 1.020 1.016-1.022 Urine Protein 2+ H NEGATIVE Urine Glucose (UA) NEGATIVE NEGATIVE Urine Ketones NEGATIVE NEGATIVE Urine Nitrite NEGATIVE NEGATIVE Urine Bilirubin NEGATIVE NEGATIVE Urine Urobilinogen NORMAL NORMAL MG/DL Urine Leukocyte Esterase 1+ H NEGATIVE Urine RBC (Auto) 2+ H NEGATIVE Urine RBC RARE /HPF Urine WBC 2-5 /HPF Urine Squamous Epithelial Cells 25-50 H /HPF Urine Crystals NONE /LPF Urine Bacteria FEW H /HPF Urine Casts NONE /LPF Urine Mucus MODERATE H /LPF Urine Culture Indicated NO My Orders Orders - YUN BOONE DO Ua Culture If Indicated (09/21/17 09:47) Urine Bedside (09/21/17 09:47) Saline Lock/Iv-Start (09/21/17 09:59) Amylase (09/21/17 09:59) Cbc With Automated Diff (09/21/17 09:59) Comprehensive Metabolic Panel (09/21/17 09:59) Lipase (09/21/17 09:59) Acute Abd Series (09/21/17 09:59) Ct Abd/Pelv W (Appendicitis) (09/21/17 09:59) Saline Lock/Iv-Start (09/21/17 09:59) Lactated Ringers (Lr 1000 Ml Iv Solution (09/21/17 09:59) Hyoscyamine Sl Tablet (Levsin Sl Tablet) (09/21/17 10:00) Iohexol Injection (Omnipaque 350 Mg/Ml 1 (09/21/17 10:15) Ns (Ivpb) (Sodium Chloride 0.9% Ivpb Bag (09/21/17 10:15) Fentanyl Injection (Sublimaze Injection (09/21/17 10:35) Ng Tube Insert & Assessment (09/21/17 10:38) Medications Given in ED Current Medications Medications Dose Ordered Sig/Roma Route Start Time Stop Time Status Last Admin Dose Admin Hyoscyamine Sulfate 0.25 mg ONCE ONCE SL 09/21/17 10:00 09/21/17 10:01 DC 09/21/17 10:04 0.25 MG Iohexol 100 ml ONCE ONCE IV 09/21/17 10:15 09/21/17 10:17 DC 09/21/17 10:26 100 ML Lactated Ringer's 1,000 ml @ 0 mls/hr Q0M ONCE IV 09/21/17 09:59 09/21/17 10:01 DC 09/21/17 10:05 1,000 MLS/HR Sodium Chloride 100 ml ONCE ONCE IV 09/21/17 10:15 09/21/17 10:17 DC 09/21/17 10:26 80 ML Vital Signs/I&O Vital Sign - Last 12Hours 09/21/17 09:45 Temp 97.7 Pulse 103 Resp 18 B/P (MAP) 129/86 (100) Pulse Ox 97 Blood Pressure Mean: 100 Diagnostic Imaging Comments ACUTE ABDOMEN XRAYS--SMALL BOWEL OBSTRUCTION, PER RADIOLOGIST REPORT @ 1047 CT ABDOMEN / PELVIS--ILEUS/PARTIAL SBO, PER RADIOLOGIST REPORT @ 1102 Reviewed: Reviewed by Me Departure Communication (Admissions) Progress Notes 1038--SPOKE WITH DR. MOLINA, ACCEPTS PT FOR ADMIT Impression Impression: Primary Impression: Small bowel obstruction Disposition: ADMITTED INPATIENT Condition: Stable Admissions Decision to Admit Reason: Admit from ER (General) Decision to Admit/Date: Sep 21, 2017 Time/Decision to Admit Time: 10:40 Departure-Patient Inst. Referrals: GISELE POPE DO (PCP/Family) Primary Care Physician YUN BOONE DO Sep 21, 2017 10:07
[2017-09-21] MEDS ORDERED: NS 100 ML (IVPB) BAG IV ONE (10:15)
[2017-09-21] MEDS ORDERED: IOHEXOL 350 MG/ML 100 ML (OMNIPAQUE 350) VIAL IV ONE (10:15)
[2017-09-21 10:17] LABS: BILIRUBIN,URINE NEGATIVE (NEGATIVE); CLARITY,URINE CLEAR; COLOR,URINE YELLOW; GLUCOSE, URINE (UA) NEGATIVE (NEGATIVE); KETONES,URINE NEGATIVE (NEGATIVE); LEUKOCYTE ESTERASE ,URINE 1+ (NEGATIVE); NITRITE,URINE NEGATIVE (NEGATIVE); PH,URINE 5 (5-9); PROTEIN,URINE 2+ (NEGATIVE); UROBILINOGEN,URINE NORMAL (NORMAL)
[2017-09-21 10:21] LABS: ALANINE AMINOTRANSFERASE 18 U/L (0-55); ALBUMIN 4.1 GM/DL (3.2-4.5); ALKALINE PHOSPHATASE 132 U/L (40-136); AMYLASE 55 U/L (25-125); BILIRUBIN,TOTAL 0.8 MG/DL (0.1-1.0); BUN/CREATININE RATIO 21; CARBON DIOXIDE 20 MMOL/L (21-32); CHLORIDE 106 MMOL/L (98-107); CREATININE SERUM 0.78 MG/DL (0.60-1.30); GFR ESTIMATED > 60; GLUCOSE 105 MG/DL (70-105); LIPASE 20 U/L (8-78); POTASSIUM 3.8 MMOL/L (3.6-5.0); SODIUM 137 MMOL/L (135-145); TOTAL PROTEIN 7.7 GM/DL (6.4-8.2)
[2017-09-21 10:28] LABS: BACTERIA,URINE FEW /HPF; RBC,URINE RARE /HPF; SQUAMOUS EPITHELIAL CELL,UR 25-50 /HPF
--- NOTE | 2017-09-21 10:31 | Diagnostic Imaging Report ---
INDICATION: Pain, diarrhea FINDINGS: The lungs are clear. The heart and vessels normal. There is no effusion or pneumothorax. Gas containing dilated mid abdominal small bowel loops measured a maximal transverse diameter of 4.6 cm. With upright positioning there are differential air-fluid levels. Large bowel presumed gasless. No pneumatosis and no free air. IMPRESSION: Pattern most suggestive of small bowel obstruction without free intraperitoneal air. Negative chest. Dictated by: Dictated on workstation # [id number]
[2017-09-21] MEDS ORDERED: fentaNYL INJECTION 100 MCG/2 ML AMP IVP STA (10:35)
--- NOTE | 2017-09-21 10:59 | Diagnostic Imaging Report ---
INDICATION: Abdominal pain and diarrhea CT of the abdomen and pelvis obtained with IV contrast bolus. Comparison made with 01/24/2017 The visualized portions of the lung bases are clear. There were no pleural fluid collections. There is no free intraperitoneal air. The liver shows no focal lesions. Gallbladder is surgically absent. Spleen, adrenals, and pancreas are normal in appearance. Kidneys bilaterally appear unremarkable. There is no retroperitoneal mass or adenopathy. There is a trace of free fluid in the pelvis which may be physiologic. There is a left adnexal cyst measuring about 1.9 cm. There are multiple distended loops of small bowel with fluid levels. The colon appears decompressed. The findings may represent ileus or partial small bowel obstruction. Appendix is not visualized but there is no inflammatory reaction in its expected location. A small ventral hernia is seen in the midline containing fat. There are some borderline size nodes in the mesentery which may be reactive. IMPRESSION: Diffuse dilatation of small bowel loops with air-fluid levels. The colon appears to be decompressed. The findings may represent partial obstruction or ileus. If there is clinical suspicion for obstruction, consider a small bowel study. The appendix is nonvisualized. There is no inflammatory reaction in its expected location. There is a small amount of free fluid in the pelvis which may be physiologic. There is a small left adnexal cyst. Patient has had prior cholecystectomy. Dictated by: Dictated on workstation # [id number]
[2017-09-21] MEDS ORDERED: ONDANSETRON 4 MG/2 ML (SDV) Z0FRAN ONE (11:11)
[2017-09-21] MEDS ORDERED: fentaNYL INJECTION 100 MCG/2 ML AMP IVP ONE (11:30)
[2017-09-21 12:00] VITALS: BP 133/71
[2017-09-21] MEDS: D5 1/2 NS W/KCL 20 MEQ/L 1,000 ML IV SCH ×2 (12:09→19:14)
[2017-09-21] MEDS ORDERED: CATHETER FLUSH 10 ML SYR IV PRN (12:15)
[2017-09-21] MEDS: PANTOPRAZOLE 40 MG/10 ML (PROTONIX) VIAL IV SCH (12:29)
[2017-09-21] MEDS: fentaNYL INJECTION 100 MCG/2 ML AMP IV PRN ×5 (13:13→22:32)
[2017-09-21] MEDS ORDERED: FERR-84 PO (13:18)
[2017-09-21] MEDS ORDERED: INFLUENZA TRIvalent 2017-2018 0.5 ML/45 MCG SYR IM ONE (14:00)
[2017-09-21] MEDS: ONDANSETRON 4 MG/2 ML (SDV) Z0FRAN IV PRN (14:13)
[2017-09-21] MEDS ORDERED: CHLORASEPTIC SPRAY 177 ML LIQUID MC PRN (14:15)
[2017-09-21 16:00] VITALS: BP 129/67
--- NOTE | 2017-09-21 19:55 | History & Physical-Surgical ---
History of Present Illness History of Present Illness Reason for visit/HPI CC: abdominal pain 22 year old female with abdominal pain that began last night around 6PM. Pain is all over and abdomen distended. Patient went to sleep but was not comfortable. She woke up early this morning and continued to have diffuse abdominal pain. She had one liquid stool this morning. Movement was making the pain worse and nothing was making the pain better. She has had multiple abdominal surgeries. She has had no significant nausea but had large emesis when placing NG tube. Pain is moderate to severe she states. She has not had any fever sweats chills shortness of breath or chest pain. Patient had ct scan demonstrating airfluid levels in small bowel and decompressed colon suggestive of ileus or psbo. Date of Admission Sep 21, 2017 at 10:40 Date Seen by Provider: Sep 21, 2017 Time Seen by Provider: 12:58 I consulted on this patient on 09/21/17 12:58 Attending Physician Oscar Stark DO Admitting Physician Tessie Mcgowan DO Consult Allergies and Home Medications Allergies Coded Allergies: morphine (Verified Allergy, Unknown, 07/23/16) Home Medications Ferrous Sulfate 325 Mg Tablet, 325 MG PO DAILY, (Reported) Past Yituhwf-Voylub-Squftp Hx Patient Social History Alcohol Use: Denies Use Recreational Drug Use: No Smoking Status: Never a Smoker Recent Foreign Travel: No Contact w/Someone Who Travel: No Recent Infectious Disease Expo: No Recent Hopitalizations: No Physical Abuse Screen: No Sexual Abuse: No Immunizations Up To Date Tetanus Booster (TDap): Unknown PED Vaccines UTD: No Seasonal Allergies Seasonal Allergies: No Surgeries History of Surgeries: Yes Surgeries: Abdominal, Bowel Surgery, Eye Surgery, Gallbladder, Oophorectomy Respiratory History of Respiratory Disorde: No Cardiovascular History of Cardiac Disorders: No Neurological History of Neurological Disord: No Reproductive System : No (LMP MID DEC) Hx Reproductive Disorders: No Sexually Transmitted Disease: No HIV/AIDS: No Female Reproductive Disorders: Denies, Ovarian Cyst Genitourinary History of Genitourinary Disor: No Gastrointestinal History of Gastrointestinal Di: Yes Gastrointestinal Disorders: Abdominal Hernia, Gastroesophageal Reflux, Obstructive Bowel, Gall Bladder Disease Musculoskeletal History of Musculoskeletal Dis: No Endocrine History of Endocrine Disorders: No HEENT History of HEENT Disorders: Yes (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 Hearing Impairment: Denies Cancer History of Cancer: No Psychosocial History of Psychiatric Problem: No Integumentary History of Skin or Integumenta: No Blood Transfusions History of Blood Disorders: Yes (HX OF ANEMIA) Adverse Reaction to a Blood Tr: No Family Medical History Significant Family History: No Pertinent Family Hx Family Medial History: Constitutional: no symptoms reported EENTM: no symptoms reported Respiratory: no symptoms reported Cardiovascular: no symptoms reported Gastrointestinal: see HPI Genitourinary: no symptoms reported Musculoskeletal: no symptoms reported Skin: no symptoms reported Psychiatric/Neurological: No Symptoms Reported Physical Exam Vital Signs Vital Sign - Last 12Hours 09/21/17 09/21/17 09:45 12:00 Temp 97.7 Pulse 103 Resp 18 B/P (MAP) 129/86 (100) Pulse Ox 97 O2 Delivery Room Air Capillary Refill : Less Than 3 Seconds General Appearance: No Apparent Distress HEENT: PERRL/EOMI, Normal ENT Inspection Neck: Normal Inspection, Non Tender Respiratory: No Accessory Muscle Use, No Respiratory Distress Cardiovascular: Regular Rate, Rhythm Gastrointestinal: Distended, Tenderness (diffuse) Rectal: Deferred Back: Normal Inspection Extremity: Normal Inspection Neurologic/Psychiatric: Alert, Oriented x3 Skin: Normal Color, Warm/Dry Lymphatic: No Adenopathy Data Review Labs Laboratory Tests 09/21/17 09:50: White Blood Count 9.8, Red Blood Count 5.59, Hemoglobin 15.0, Hematocrit 44, Mean Corpuscular Volume 79L, Mean Corpuscular Hemoglobin 27, Mean Corpuscular Hemoglobin Concent 34, Red Cell Distribution Width 14.1, Platelet Count 255, Mean Platelet Volume 9.5, Neutrophils (%) (Auto) 81H, Lymphocytes (%) (Auto) 13 , Monocytes (%) (Auto) 6, Eosinophils (%) (Auto) 1, Basophils (%) (Auto) 0, Neutrophils # (Auto) 8.0H, Lymphocytes # (Auto) 1.2, Monocytes # (Auto) 0.6, Eosinophils # (Auto) 0.1, Basophils # (Auto) 0.0, Sodium Level 137, Potassium Level 3.8, Chloride Level 106, Carbon Dioxide Level 20L, Anion Gap 11, Blood Urea Nitrogen 16, Creatinine 0.78, Estimat Glomerular Filtration Rate > 60, BUN/ Creatinine Ratio 21, Glucose Level 105, Calcium Level 9.0, Total Bilirubin 0.8, Aspartate Amino Transf (AST/SGOT) 17, Alanine Aminotransferase (ALT/SGPT) 18, Alkaline Phosphatase 132, Total Protein 7.7, Albumin 4.1, Amylase Level 55, Lipase 20 09/21/17 10:05: Urine Color YELLOW, Urine Clarity CLEAR, Urine pH 5, Urine Specific Rigby 1.020, Urine Protein 2+H, Urine Glucose (UA) NEGATIVE, Urine Ketones NEGATIVE, Urine Nitrite NEGATIVE, Urine Bilirubin NEGATIVE, Urine Urobilinogen NORMAL, Urine Leukocyte Esterase 1+H, Urine RBC (Auto) 2+H, Urine RBC RARE, Urine WBC 2- 5, Urine Squamous Epithelial Cells 25-50H, Urine Crystals NONE, Urine Bacteria FEWH, Urine Casts NONE, Urine Mucus MODERATEH, Urine Culture Indicated NO Assessment/Plan Assessment/Plan Assessment/Plan abdominal pain diffuse partial small bowel obstruction. patient with multiple previous abdominal surgeries. she has abdominal distention and ct finding consistent with partial small bowel obstruction an ng tube has already been placed in the emergency department will keep to LIWS Pain control Iv hydration plan small bowel follow through tomorrow conservative management at this time. Clinical Quality Measures DVT/VTE Risk/Contraindication: RFS Level Per Nursing on Admit: 0=No Risk/No VTE PPX OSCAR STARK DO Sep 21, 2017 19:55
[2017-09-21 20:00] VITALS: BP 123/59
[2017-09-22] VITALS: BP 109/58
[2017-09-22] MEDS: D5 1/2 NS W/KCL 20 MEQ/L 1,000 ML IV SCH ×5 (01:47→23:33)
[2017-09-22 04:00] VITALS: BP 105/57
[2017-09-22] MEDS: fentaNYL INJECTION 100 MCG/2 ML AMP IV PRN ×4 (05:16→18:17)
[2017-09-22 06:44] LABS: BASOPHILS % (AUTO) 0 % (0-10); EOSINOPHILS # (AUTO) 0.1 10^3/uL (0.0-0.3); EOSINOPHILS % (AUTO) 1 % (0-10); HEMATOCRIT 37 % (35-52); HEMOGLOBIN 12.4 G/DL (11.5-16.0); LYMPHOCYTES # (AUTO) 1.8 X 10^3 (1.0-4.0); LYMPHOCYTES % (AUTO) 30 % (12-44); MEAN CORPUSCULAR HEMOGLOBIN 27 PG (25-34); MEAN CORPUSCULAR HGB CONC 33 G/DL (32-36); MEAN CORPUSCULAR VOLUME 81 FL (80-99); MEAN PLATELET VOLUME 9.7 FL (7.4-10.4); MONOCYTES # (AUTO) 0.5 X 10^3 (0.0-1.0); MONOCYTES % (AUTO) 9 % (0-12); NEUTROPHILS # (AUTO) 3.5 X 10^3 (1.8-7.8); NEUTROPHILS % (AUTO) 60 % (42-75); PLATELET COUNT 200 10^3/uL (130-400); RED BLOOD COUNT 4.61 10^6/uL (4.35-5.85); RED CELL DISTRIBUTION WIDTH 14.2 % (10.0-14.5); WHITE BLOOD COUNT 5.9 10^3/uL (4.3-11.0)
[2017-09-22 07:00] LABS: ALANINE AMINOTRANSFERASE 12 U/L (0-55); ALBUMIN 3.2 GM/DL (3.2-4.5); ALKALINE PHOSPHATASE 96 U/L (40-136); BILIRUBIN,TOTAL 0.5 MG/DL (0.1-1.0); BUN/CREATININE RATIO 12; CALCIUM 7.8 MG/DL (8.5-10.1); CARBON DIOXIDE 17 MMOL/L (21-32); CHLORIDE 108 MMOL/L (98-107); CREATININE SERUM 0.68 MG/DL (0.60-1.30); GFR ESTIMATED > 60; GLUCOSE 113 MG/DL (70-105); POTASSIUM 3.9 MMOL/L (3.6-5.0); SODIUM 134 MMOL/L (135-145); TOTAL PROTEIN 5.8 GM/DL (6.4-8.2)
[2017-09-22 07:21] VITALS: BP 154/55
[2017-09-22] MEDS ORDERED: DIATRIZOATE MEGLUM/SODIUM 37% 120 ML (GASTROGRAFIN) NG ONE (08:15)
[2017-09-22] MEDS: ONDANSETRON 4 MG/2 ML (SDV) Z0FRAN IV PRN (09:15)
[2017-09-22] MEDS: PANTOPRAZOLE 40 MG/10 ML (PROTONIX) VIAL IV SCH (09:15)
[2017-09-22 11:47] VITALS: BP 108/55
--- NOTE | 2017-09-22 11:47 | Diagnostic Imaging Report ---
EXAM: Small bowel exam. INDICATION: Small bowel obstruction FINDINGS: The acute abdomen series performed on 09/21/2017 indicated a small bowel obstruction. In the interval since the prior exam, an NG line has been inserted. The line appears in good position with the tip overlying the gastric fundus. There are still several dilated gas-filled segments of small bowel present. There has been an increase in the amount of gas within the colon since the prior exam. Gastrografin was introduced to the stomach via the patient's NG tube. Gastrografin did progress through the small bowel. There are persistent dilated segments of small bowel present but there is evidence of Gastrografin within the colon by 2 hours. This would indicate there is not a complete small bowel obstruction. At attempt was made to visualize the terminal ileum but the terminal ileum could not be well imaged due to the dilated gas-filled contrast laden segments of small bowel. IMPRESSION: There is no evidence for obstruction of the small bowel. Dictated by: Dictated on workstation # [id number]
[2017-09-22 16:00] VITALS: BP 117/65
--- OUTSIDE RECORDS SUMMARY | 2017-09-22 18:27 | XMS REPORT | Continuity of Care Document ---
Author Author [facility] Organization [facility] Address Unknown Phone Unavailable Allergies Active Description Code Type Severity Reaction Onset Reported/Identified Relationship to Patient Clinical Status Yes No Known Drug Allergies [id number] Drug Allergy Unknown N/A 06/01/2009 Yes morphine [id number] Drug Allergy Unknown N/A 07/23/2016 Medications There is no data. Problems Date Dx Coded Attending Type Code Diagnosis Diagnosed By 04/19/2014 JUDITH WHITAKER MERCHANDISE MANAGER Ot 535.50 04/19/2014 JUDITH WHITAKER MERCHANDISE MANAGER Ot 789.00 04/19/2014 JUDITH WHITAKER MERCHANDISE MANAGER Ot V22.2 11/16/2014 Ot 787.02 NAUSEA ALONE 04/20/2015 JUDITH WHITAKER MERCHANDISE MANAGER Ot 457.2 LYMPHANGITIS 04/20/2015 JUDITH WHITAKER MERCHANDISE MANAGER Ot 682.2 CELLULITIS OF TRUNK 04/20/2015 JUDITH WHITAKER MERCHANDISE MANAGER Ot 709.8 SKIN DISORDERS NEC 04/30/2015 TRISTON MURPHY, CHARMAINE R Ot 682.2 CELLULITIS OF TRUNK 04/30/2015 TRISTON MURPHY, CHARMAINE R Ot 911.5 INSECT BITE TRUNK-INFEC 04/30/2015 TRISTON MURPHY, CHARMAINE R Ot E000.8 OTHER EXTERNAL CAUSE STATUS 04/30/2015 TRISTON MURPHY, CHARMAINE R Ot E906.4 NONVENOM ARTHROPOD BITE 04/30/2015 TRISTON MURPHY, CHARMAINE R Ot 682.2 04/30/2015 TRISTON MURPHY, CHARMAINE R Ot 911.5 04/30/2015 TRISTON MURPHY, CHARMAINE R Ot E000.8 04/30/2015 TRISTON MURPHY, CHARMAINE R Ot E906.4 04/30/2015 TRISTON MURPHY, CHARMAINE R Ot 682.2 04/30/2015 TRISTON MURPHY, CHARMAINE R Ot 911.5 04/30/2015 TRISTON MURPHY, CHARMAINE R Ot E000.8 04/30/2015 TRISTON MURPHY, CHARMAINE R Ot E906.4 04/30/2015 TRISTON MURPHY, CHARMAINE R Ot 682.2 04/30/2015 TRISTON MURPHY, CHARMAINE R Ot 911.5 04/30/2015 TRISTON MURPHY, CHARMAINE R Ot E000.8 04/30/2015 TRISTON MURPHY, CHARMAINE R Ot E906.4 07/10/2015 HOMA MURPHY, CHANDNI Campbell Ot K92.1 MELENA 07/09/2016 FENECH DO, GRISEL S Ot O62.0 PRIMARY INADEQUATE CONTRACTIONS 07/09/2016 FENECH DO, GRISEL S Ot Z3A.37 37 WEEKS GESTATION OF 07/25/2016 SRINIVASECH , GRISEL S Ot D62 ACUTE POSTHEMORRHAGIC ANEMIA 07/25/2016 SRINIVASECH DO, GRISEL S Ot O62.4 HYPERTONIC, INCOORDINATE, AND PROLONGED 07/25/2016 FENECH DO, GRISEL S Ot O99.03 ANEMIA COMPLICATING THE PUERPERIUM 07/25/2016 SRINIVASECH DO, GRISEL S Ot Z37.0 SINGLE LIVE 07/25/2016 TINY FLOYD, GRISEL S Ot Z3A.39 39 WEEKS GESTATION OF 12/08/2016 JOAQUIM JACKELINE FLOYD Ot N64.59 OTHER SIGNS AND SYMPTOMS IN BREAST 12/08/2016 [facility] DO SENAITLING Ot R92.8 OTH ABN AND INCONCLUSIVE FINDINGS ON DX 12/13/2016 JOAQUIM DO SENAITLING Ot N64.59 OTHER SIGNS AND SYMPTOMS IN BREAST 12/13/2016 JOAQUIM DO SENAITLING Ot R92.8 OTH ABN AND INCONCLUSIVE FINDINGS ON DX 12/17/2016 [facility] , MILLAROULING Ot N64.59 OTHER SIGNS AND SYMPTOMS IN BREAST 12/17/2016 [facility] DO SENAITLING Ot R92.8 OTH ABN AND INCONCLUSIVE FINDINGS ON DX 01/24/2017 Ot R10.13 EPIGASTRIC PAIN 01/24/2017 Ot R11.2 NAUSEA WITH VOMITING, UNSPECIFIED 01/27/2017 GISELE POPE DO Ot R10.84 GENERALIZED ABDOMINAL PAIN 02/10/2017 OSCAR MOLINA DO Ot K80.10 CALCULUS OF GALLBLADDER W CHRONIC CHOLEC 02/14/2017 OSCAR MOLINA DO Ot K80.20 CALCULUS OF GALLBLADDER W/O CHOLECYSTITI 02/14/2017 [place] OSCAR FLOYD Ot Z01.818 ENCOUNTER FOR OTHER PREPROCEDURAL EXAMIN 02/16/2017 TOSHIA JAELI Ot R10.84 GENERALIZED ABDOMINAL PAIN 02/17/2017 [place] OSCAR FLOYD Ot K80.10 CALCULUS OF GALLBLADDER W CHRONIC CHOLEC 02/21/2017 [place] OSCAR FLOYD Ot R10.13 EPIGASTRIC PAIN Procedures Code Description Performed By Performed On [id number] DIVISION OF FEMALE PERINEUM, EXTERNAL AP 07/24/2016 [id number] DELIVERY OF PRODUCTS OF CONCEPTION, EXTE 07/24/2016 Results Test Result Range Complete urinalysis with reflex to culture - 07/09/16 07:10 Urine color determination YELLOW NRG Urine clarity determination VERY CLOUDY NRG Urine pH measurement by test strip 6.5 5-9 Specific gravity of urine by test strip 1.015 1.016- 1.022 Urine protein assay by test strip, semi-quantitative 1+ NEGATIVE Urine glucose detection by automated test strip NEGATIVE NEGATIVE Erythrocytes detection in urine sediment by light microscopy NEGATIVE NEGATIVE Urine ketones detection by automated test strip NEGATIVE NEGATIVE Urine nitrite detection by test strip NEGATIVE NEGATIVE Urine total bilirubin detection by test strip NEGATIVE NEGATIVE Urine urobilinogen measurement by automated test strip (mass/volume) NORMAL NORMAL Urine leukocyte esterase detection by dipstick 2+ NEGATIVE Automated urine sediment erythrocyte count by microscopy (number/high power field) NONE NRG Automated urine sediment leukocyte count by microscopy (number/high power field ) [HPF] NRG Bacteria detection in urine sediment by light microscopy LARGE NRG Squamous epithelial cells detection in urine sediment by light microscopy 25-50 NRG Crystals detection in urine sediment by light microscopy NONE NRG Casts detection in urine sediment by light microscopy NONE NRG Mucus detection in urine sediment by light microscopy NEGATIVE NRG Complete urinalysis with reflex to culture NO NRG Complete blood count (CBC) with automated white blood cell (WBC) differential - 07/09/16 11:00 Blood leukocytes automated count (number/volume) 10.7 10*3/uL 4.3-11.0 Blood erythrocytes automated count (number/volume) 4.68 10*6/uL 4.35-5.85 Venous blood hemoglobin measurement (mass/volume) 12.5 g/dL 11.5-16.0 Blood hematocrit (volume fraction) 37 % 35-52 Automated erythrocyte mean corpuscular volume 80 [foz_us] 80-99 Automated erythrocyte mean corpuscular hemoglobin (mass per erythrocyte) 27 pg 25-34 Automated erythrocyte mean corpuscular hemoglobin concentration measurement ( mass/volume) 34 g/dL 32-36 Automated erythrocyte distribution width ratio 14.3 % 10.0-14.5 Automated blood platelet count (count/volume) 228 10*3/uL 130-400 Automated blood platelet mean volume measurement 9.7 [foz_us] 7.4-10.4 Automated blood neutrophils/100 leukocytes 81 % 42-75 Automated blood lymphocytes/100 leukocytes 14 % 12-44 Blood monocytes/100 leukocytes 5 % 0-12 Automated blood eosinophils/100 leukocytes 0 % 0-10 Automated blood basophils/100 leukocytes 0 % 0-10 Blood neutrophils automated count (number/volume) 8.7 10*3 1.8-7.8 Blood lymphocytes automated count (number/volume) 1.5 10*3 1.0-4.0 Blood monocytes automated count (number/volume) 0.5 10*3 0.0-1.0 Automated eosinophil count 0.0 10*3/uL 0.0-0.3 Automated blood basophil count (count/volume) 0.0 10*3/uL 0.0-0.1 Blood type T Indirect antibody screen panel - 07/09/16 11:00 ABO+Rh group AP [facility] Transfusion band number [id number] [facility] Blood group antibody screen NEGATIVE NR Complete urinalysis with reflex to culture - 07/23/16 03:40 Urine color determination YELLOW NRG Urine clarity determination CLEAR NRG Urine pH measurement by test strip 7 5-9 Specific gravity of urine by test strip 1.010 1.016- 1.022 Urine protein assay by test strip, semi-quantitative 2+ NEGATIVE Urine glucose detection by automated test strip 1+ NEGATIVE Erythrocytes detection in urine sediment by light microscopy NEGATIVE NEGATIVE Urine ketones detection by automated test strip NEGATIVE NEGATIVE Urine nitrite detection by test strip NEGATIVE NEGATIVE Urine total bilirubin detection by test strip NEGATIVE NEGATIVE Urine urobilinogen measurement by automated test strip (mass/volume) NORMAL NORMAL Urine leukocyte esterase detection by dipstick 2+ NEGATIVE Automated urine sediment erythrocyte count by microscopy (number/high power field) NONE NRG Automated urine sediment leukocyte count by microscopy (number/high power field ) [HPF] NR Bacteria detection in urine sediment by light microscopy MODERATE NRG Squamous epithelial cells detection in urine sediment by light microscopy 2-5 NRG Crystals detection in urine sediment by light microscopy NONE NRG Casts detection in urine sediment by light microscopy NONE NRG Mucus detection in urine sediment by light microscopy SMALL NRG Complete urinalysis with reflex to culture YES NRG Bacterial urine culture - 07/23/16 03:40 Bacterial urine culture [id number] NRG COLONY COUNT <10,000 NRG URINE CULTURE RESULTS <10,000/ML NRG Complete blood count (CBC) with automated white blood cell (WBC) differential - 07/23/16 05:35 Blood leukocytes automated count (number/volume) 12.7 10*3/uL 4.3-11.0 Blood erythrocytes automated count (number/volume) 4.72 10*6/uL 4.35-5.85 Venous blood hemoglobin measurement (mass/volume) 12.7 g/dL 11.5-16.0 Blood hematocrit (volume fraction) 38 % 35-52 Automated erythrocyte mean corpuscular volume 81 [foz_us] 80-99 Automated erythrocyte mean corpuscular hemoglobin (mass per erythrocyte) 27 pg 25-34 Automated erythrocyte mean corpuscular hemoglobin concentration measurement ( mass/volume) 33 g/dL 32-36 Automated erythrocyte distribution width ratio 14.9 % 10.0-14.5 Automated blood platelet count (count/volume) 232 10*3/uL 130-400 Automated blood platelet mean volume measurement 10.6 [foz_us] 7.4-10.4 Automated blood neutrophils/100 leukocytes 81 % 42-75 Automated blood lymphocytes/100 leukocytes 13 % 12-44 Blood monocytes/100 leukocytes 5 % 0-12 Automated blood eosinophils/100 leukocytes 0 % 0-10 Automated blood basophils/100 leukocytes 0 % 0-10 Blood neutrophils automated count (number/volume) 10.2 10*3 1.8-7.8 Blood lymphocytes automated count (number/volume) 1.7 10*3 1.0-4.0 Blood monocytes automated count (number/volume) 0.7 10*3 0.0-1.0 Automated eosinophil count 0.0 10*3/uL 0.0-0.3 Automated blood basophil count (count/volume) 0.0 10*3/uL 0.0-0.1 Blood type T Indirect antibody screen panel - 11/11/16 05:35 ABO+Rh group AP NRG Transfusion band number [id number] NRG Blood group antibody screen NEGATIVE NRG Complete blood count (CBC) with automated white blood cell (WBC) differential - 07/25/16 05:07 Blood leukocytes automated count (number/volume) 10.7 10*3/uL 4.3-11.0 Blood erythrocytes automated count (number/volume) 3.40 10*6/uL 4.35-5.85 Venous blood hemoglobin measurement (mass/volume) 9.2 g/dL 11.5-16.0 Blood hematocrit (volume fraction) 28 % 35-52 Automated erythrocyte mean corpuscular volume 82 [foz_us] 80-99 Automated erythrocyte mean corpuscular hemoglobin (mass per erythrocyte) 27 pg 25-34 Automated erythrocyte mean corpuscular hemoglobin concentration measurement ( mass/volume) 33 g/dL 32-36 Automated erythrocyte distribution width ratio 14.6 % 10.0-14.5 Automated blood platelet count (count/volume) 179 10*3/uL 130-400 Automated blood platelet mean volume measurement 9.5 [foz_us] 7.4-10.4 Automated blood neutrophils/100 leukocytes 75 % 42-75 Automated blood lymphocytes/100 leukocytes 18 % 12-44 Blood monocytes/100 leukocytes 6 % 0-12 Automated blood eosinophils/100 leukocytes 1 % 0-10 Automated blood basophils/100 leukocytes 0 % 0-10 Blood neutrophils automated count (number/volume) 8.0 10*3 1.8-7.8 Blood lymphocytes automated count (number/volume) 1.9 10*3 1.0-4.0 Blood monocytes automated count (number/volume) 0.6 10*3 0.0-1.0 Automated eosinophil count 0.1 10*3/uL 0.0-0.3 Automated blood basophil count (count/volume) 0.0 10*3/uL 0.0-0.1 Urine beta human chorionic gonadotropin (hCG) measurement - 02/10/17 07:55 Urine beta human chorionic gonadotropin (hCG) measurement NEGATIVE NEGATIVE Methicillin resistant Staphylococcus aureus (MRSA) screening culture - 08:05 Methicillin resistant Staphylococcus aureus (MRSA) screening culture NEG NRG Complete blood count (CBC) with automated white blood cell (WBC) differential - 09/21/17 09:50 Blood leukocytes automated count (number/volume) 9.8 10*3/uL 4.3-11.0 Blood erythrocytes automated count (number/volume) 5.59 10*6/uL 4.35-5.85 Venous blood hemoglobin measurement (mass/volume) 15.0 g/dL 11.5-16.0 Blood hematocrit (volume fraction) 44 % 35-52 Automated erythrocyte mean corpuscular volume 79 [foz_us] 80-99 Automated erythrocyte mean corpuscular hemoglobin (mass per erythrocyte) 27 pg 25-34 Automated erythrocyte mean corpuscular hemoglobin concentration measurement ( mass/volume) 34 g/dL 32-36 Automated erythrocyte distribution width ratio 14.1 % 10.0-14.5 Automated blood platelet count (count/volume) 255 10*3/uL 130-400 Automated blood platelet mean volume measurement 9.5 [foz_us] 7.4-10.4 Automated blood neutrophils/100 leukocytes 81 % 42-75 Automated blood lymphocytes/100 leukocytes 13 % 12-44 Blood monocytes/100 leukocytes 6 % 0-12 Automated blood eosinophils/100 leukocytes 1 % 0-10 Automated blood basophils/100 leukocytes 0 % 0-10 Blood neutrophils automated count (number/volume) 8.0 10*3 1.8-7.8 Blood lymphocytes automated count (number/volume) 1.2 10*3 1.0-4.0 Blood monocytes automated count (number/volume) 0.6 10*3 0.0-1.0 Automated eosinophil count 0.1 10*3/uL 0.0-0.3 Automated blood basophil count (count/volume) 0.0 10*3/uL 0.0-0.1 Comprehensive metabolic panel - 09/21/17 09:50 Serum or plasma sodium measurement (moles/volume) 137 mmol/L 135-145 Serum or plasma potassium measurement (moles/volume) 3.8 mmol/L 3.6-5.0 Serum or plasma chloride measurement (moles/volume) 106 mmol/L 98-107 Carbon dioxide 20 mmol/L 21-32 Serum or plasma anion gap determination (moles/volume) 11 mmol/L 5-14 Serum or plasma urea nitrogen measurement (mass/volume) 16 mg/dL 7-18 Serum or plasma creatinine measurement (mass/volume) 0.78 mg/dL 0.60-1.30 Serum or plasma urea nitrogen/creatinine mass ratio 21 NRG Serum or plasma creatinine measurement with calculation of estimated glomerular filtration rate > NRG Serum or plasma glucose measurement (mass/volume) 105 mg/dL 70-105 Serum or plasma calcium measurement (mass/volume) 9.0 mg/dL 8.5-10.1 Serum or plasma total bilirubin measurement (mass/volume) 0.8 mg/dL 0.1-1.0 Serum or plasma alkaline phosphatase measurement (enzymatic activity/volume) 132 U/L 40-136 Serum or plasma aspartate aminotransferase measurement (enzymatic activity/ volume) 17 U/L 5-34 Serum or plasma alanine aminotransferase measurement (enzymatic activity/volume ) 18 U/L 0-55 Serum or plasma protein measurement (mass/volume) 7.7 g/dL 6.4-8.2 Serum or plasma albumin measurement (mass/volume) 4.1 g/dL 3.2-4.5 Serum or plasma amylase measurement (enzymatic activity/volume) - 09/21/17 09: 50 Serum or plasma amylase measurement (enzymatic activity/volume) 55 U /L 25-125 Lipase - 09/21/17 09:50 Lipase 20 U/L 8-78 Complete urinalysis with reflex to culture - 09/21/17 10:05 Urine color determination YELLOW NRG Urine clarity determination CLEAR NRG Urine pH measurement by test strip 5 5-9 Specific gravity of urine by test strip 1.020 1.016- 1.022 Urine protein assay by test strip, semi-quantitative 2+ NEGATIVE Urine glucose detection by automated test strip NEGATIVE NEGATIVE Erythrocytes detection in urine sediment by light microscopy 2+ NEGATIVE Urine ketones detection by automated test strip NEGATIVE NEGATIVE Urine nitrite detection by test strip NEGATIVE NEGATIVE Urine total bilirubin detection by test strip NEGATIVE NEGATIVE Urine urobilinogen measurement by automated test strip (mass/volume) NORMAL NORMAL Urine leukocyte esterase detection by dipstick 1+ NEGATIVE Automated urine sediment erythrocyte count by microscopy (number/high power field) RARE NRG Automated urine sediment leukocyte count by microscopy (number/high power field ) [HPF] NRG Bacteria detection in urine sediment by light microscopy FEW NRG Squamous epithelial cells detection in urine sediment by light microscopy 25-50 NRG Crystals detection in urine sediment by light microscopy NONE NRG Casts detection in urine sediment by light microscopy NONE NRG Mucus detection in urine sediment by light microscopy MODERATE NRG Complete urinalysis with reflex to culture NO NRG Complete blood count (CBC) with automated white blood cell (WBC) differential - 09/22/17 05:47 Blood leukocytes automated count (number/volume) 5.9 10*3/uL 4.3-11.0 Blood erythrocytes automated count (number/volume) 4.61 10*6/uL 4.35-5.85 Venous blood hemoglobin measurement (mass/volume) 12.4 g/dL 11.5-16.0 Blood hematocrit (volume fraction) 37 % 35-52 Automated erythrocyte mean corpuscular volume 81 [foz_us] 80-99 Automated erythrocyte mean corpuscular hemoglobin (mass per erythrocyte) 27 pg 25-34 Automated erythrocyte mean corpuscular hemoglobin concentration measurement ( mass/volume) 33 g/dL 32-36 Automated erythrocyte distribution width ratio 14.2 % 10.0-14.5 Automated blood platelet count (count/volume) 200 10*3/uL 130-400 Automated blood platelet mean volume measurement 9.7 [foz_us] 7.4-10.4 Automated blood neutrophils/100 leukocytes 60 % 42-75 Automated blood lymphocytes/100 leukocytes 30 % 12-44 Blood monocytes/100 leukocytes 9 % 0-12 Automated blood eosinophils/100 leukocytes 1 % 0-10 Automated blood basophils/100 leukocytes 0 % 0-10 Blood neutrophils automated count (number/volume) 3.5 10*3 1.8-7.8 Blood lymphocytes automated count (number/volume) 1.8 10*3 1.0-4.0 Blood monocytes automated count (number/volume) 0.5 10*3 0.0-1.0 Automated eosinophil count 0.1 10*3/uL 0.0-0.3 Automated blood basophil count (count/volume) 0.0 10*3/uL 0.0-0.1 Comprehensive metabolic panel - 09/22/17 05:47 Serum or plasma sodium measurement (moles/volume) 134 mmol/L 135-145 Serum or plasma potassium measurement (moles/volume) 3.9 mmol/L 3.6-5.0 Serum or plasma chloride measurement (moles/volume) 108 mmol/L 98-107 Carbon dioxide 17 mmol/L 21-32 Serum or plasma anion gap determination (moles/volume) 9 mmol/L 5-14 Serum or plasma urea nitrogen measurement (mass/volume) 8 mg/dL 7-18 Serum or plasma creatinine measurement (mass/volume) 0.68 mg/dL 0.60-1.30 Serum or plasma urea nitrogen/creatinine mass ratio 12 NRG Serum or plasma creatinine measurement with calculation of estimated glomerular filtration rate > NRG Serum or plasma glucose measurement (mass/volume) 113 mg/dL 70-105 Serum or plasma calcium measurement (mass/volume) 7.8 mg/dL 8.5-10.1 Serum or plasma total bilirubin measurement (mass/volume) 0.5 mg/dL 0.1-1.0 Serum or plasma alkaline phosphatase measurement (enzymatic activity/volume) 96 U/L 40-136 Serum or plasma aspartate aminotransferase measurement (enzymatic activity/ volume) 15 U/L 5-34 Serum or plasma alanine aminotransferase measurement (enzymatic activity/volume ) 12 U/L 0-55 Serum or plasma protein measurement (mass/volume) 5.8 g/dL 6.4-8.2 Serum or plasma albumin measurement (mass/volume) 3.2 g/dL 3.2-4.5 Encounters ACCT No. Visit Date/Time Discharge Status Pt. Type Provider Facility Loc./Unit Complaint [id number] 02/10/2017 12:00:00 02/10/2017 23:59:59 CLS Preadmit OSCAR MOLINA DO [facility] CARD EPIGASTRIC ABD PAIN [id number] 02/10/2017 07:44:00 02/10/2017 13:50:00 DIS Outpatient OSCAR MOLINA DO [facility] SDC CHOLELITHIASIS [id number] 02/09/2017 15:28:00 02/09/2017 15:47:00 DIS Outpatient OSCAR MOLINA DO [facility] PREOP LAPAROPSCOPIC CHOLECYSTECTOMY WITH GRAMS [id number] 02/03/2017 06:49:00 02/03/2017 23:59:59 CLS Outpatient OSCAR MOLINA DO [facility] RAD EPIGASTRIC ABD PAIN [id number] 01/25/2017 07:42:00 01/25/2017 23:59:59 CLS Outpatient GISELE POPE DO [facility] RAD R10.84 GERNARLIZED ABD PAIN [id number] 12/07/2016 06:48:00 12/07/2016 23:59:59 CLS Outpatient JACKELINE MARCH DO [facility] RAD LT NIPPLE INVERSION [id number] 07/23/2016 08:22:00 07/25/2016 14:45:00 DIS Inpatient GRISEL FRANKS DO [facility] LDRP BACK PAIN;LABOR [id number] 07/09/2016 06:40:00 07/09/2016 13:25:00 DIS Inpatient GRISEL FRANKS DO [facility] LDRP PROLONGED LATENT PHASE LABOR [id number] 07/10/2015 16:37:00 07/10/2015 18:03:00 DIS Emergency HOMA MURPHY, CHANDNI Campbell [facility] ER BLOOD IN STOOL [id number] 04/27/2015 12:17:00 04/30/2015 09:48:00 DIS Inpatient TRISTON MURPHY, CHARMAINE Prince [facility] 4TH CELLULITIS OF TORSO [id number] 04/20/2015 16:18:00 04/20/2015 16:46:00 DIS Emergency JUDITH WHITAKER APRN [facility] ER SPIDER BITE ON BACK CAUSING RASH [id number] 04/19/2014 15:38:00 04/19/2014 18:53:00 DIS Emergency JUDITH WHITAKER MERCHANDISE MANAGER [facility] ER [id number] 09/21/2017 10:40:00 ACT Inpatient OSCAR MOLINA DO [facility] 4TH SMALL BOWEL OBSTRUCTION [id number] 01/24/2017 03:25:00 Document Registration [id number] 07/23/2016 04:01:00 Document Registration [id number] 11/16/2014 14:17:00 Document Registration [id number] 09/16/2015 16:06:10 09/16/2015 23:59:59 CLS Outpatient Jessica Pinedo [id number] 09/01/2015 15:37:25 09/01/2015 23:59:59 CLS Outpatient Zhanna Mccray [id number] 04/21/2015 21:49:07 04/21/2015 23:59:59 CLS Outpatient Zhanna Mccray [id number] 06/13/2014 16:35:39 06/13/2014 23:59:59 CLS Outpatient Ant Barker [id number] 06/09/2014 22:24:55 06/09/2014 23:59:59 CLS Outpatient Franco Jad Batres [id number] 05/15/2014 17:02:41 05/15/2014 23:59:59 CLS Outpatient Ant Barker [id number] 04/23/2014 11:04:14 04/23/2014 23:59:59 CLS Outpatient Zhanna Mccray [id number] 12/19/2013 11:55:49 12/19/2013 23:59:59 CLS Outpatient Zhanna Mccray [id number] 09/07/2013 10:30:20 09/07/2013 23:59:59 CLS Outpatient Zhanna Mccray
--- OUTSIDE RECORDS SUMMARY | 2017-09-22 18:49 | XMS REPORT | Continuity of Care Document ---
Author Author [facility] Organization [facility] Address Unknown Phone Unavailable Allergies Active Description Code Type Severity Reaction Onset Reported/Identified Relationship to Patient Clinical Status Yes No Known Drug Allergies [id number] Drug Allergy Unknown N/A 06/01/2009 Yes morphine [id number] Drug Allergy Unknown N/A 07/23/2016 Medications There is no data. Problems Date Dx Coded Attending Type Code Diagnosis Diagnosed By 04/19/2014 JUDITH WHITAKER NOVELTY DIPPER Ot 535.50 04/19/2014 JUDITH WHITAKER NOVELTY DIPPER Ot 789.00 04/19/2014 JUDITH WHITAKER NOVELTY DIPPER Ot V22.2 11/16/2014 Ot 787.02 NAUSEA ALONE 04/20/2015 JUDITH WHITAKER NOVELTY DIPPER Ot 457.2 LYMPHANGITIS 04/20/2015 JUDITH WHITAKER NOVELTY DIPPER Ot 682.2 CELLULITIS OF TRUNK 04/20/2015 JUDITH WHITAKER NOVELTY DIPPER Ot 709.8 SKIN DISORDERS NEC 04/30/2015 TRISTON [...] OTHER SIGNS AND SYMPTOMS IN BREAST 12/08/2016 [facility] DO SENAITLING Ot R92.8 OTH ABN AND INCONCLUSIVE FINDINGS ON DX 12/13/2016 JOAQUIM DO SENAITLING Ot N64.59 OTHER SIGNS AND SYMPTOMS IN BREAST 12/13/2016 JOAQUIM DO SENAITLING Ot R92.8 OTH ABN AND INCONCLUSIVE FINDINGS ON DX 12/17/2016 [facility] , MILLAROULING Ot N64.59 OTHER SIGNS AND SYMPTOMS IN BREAST 12/17/2016 [facility] DO SENAITLING Ot R92.8 OTH ABN AND INCONCLUSIVE FINDINGS ON DX 01/24/2017 Ot R10.13 EPIGASTRIC PAIN 01/24/2017 Ot R11.2 NAUSEA WITH VOMITING, UNSPECIFIED 01/27/2017 GISELE POPE DO Ot R10.84 GENERALIZED ABDOMINAL PAIN 02/10/2017 OSCAR MOLINA DO Ot K80.10 CALCULUS OF GALLBLADDER W CHRONIC CHOLEC 02/14/2017 OSCAR MOLINA DO Ot K80.20 CALCULUS OF GALLBLADDER W/O CHOLECYSTITI 02/14/2017 MARYVILLE OSCAR FLOYD Ot Z01.818 ENCOUNTER FOR OTHER PREPROCEDURAL EXAMIN 02/16/2017 TOSHIA JAELI Ot R10.84 GENERALIZED ABDOMINAL PAIN 02/17/2017 MARY[place]LE OSCAR FLOYD Ot K80.10 CALCULUS OF GALLBLADDER W CHRONIC CHOLEC 02/21/2017 [place] OSCAR FLOYD Ot R10.13 EPIGASTRIC PAIN Procedures Code Description Performed By Performed On [id number] DIVISION OF FEMALE PERINEUM, EXTERNAL AP 07/24/2016 [id number] DELIVERY OF PRODUCTS OF CONCEPTION, EXTE 07/24/2016 [...] panel - 07/09/16 11:00 ABO+Rh group AP [facility] Transfusion band number [id number] [facility] Blood group antibody screen NEGATIVE NR [...] culture - 07/23/16 03:40 Bacterial urine culture [id number] NRG COLONY COUNT <10,000 NRG URINE CULTURE [...] ABO+Rh group AP [facility] Transfusion band number [id number] [facility] Blood group antibody screen NEGATIVE NRG [...] Status Pt. Type Provider Facility Loc./Unit Complaint [id number] 02/10/2017 12:00:00 02/10/2017 23:59:59 CLS Preadmit OSCAR MOLINA DO [facility] CARD EPIGASTRIC ABD PAIN [id number] 02/10/2017 07:44:00 02/10/2017 13:50:00 DIS Outpatient OSCAR MOLINA DO [facility] SDC CHOLELITHIASIS [id number] 02/09/2017 15:28:00 02/09/2017 15:47:00 DIS Outpatient OSCAR MOLINA DO [facility] PREOP LAPAROPSCOPIC CHOLECYSTECTOMY WITH GRAMS [id number] 02/03/2017 06:49:00 02/03/2017 23:59:59 CLS Outpatient OSCAR MOLINA DO [facility] RAD EPIGASTRIC ABD PAIN [id number] 01/25/2017 07:42:00 01/25/2017 23:59:59 CLS Outpatient GISELE POPE DO [facility] RAD R10.84 GERNARLIZED ABD PAIN [id number] 12/07/2016 06:48:00 12/07/2016 23:59:59 CLS Outpatient JACKELINE MARCH DO [facility] RAD LT NIPPLE INVERSION [id number] 07/23/2016 08:22:00 07/25/2016 14:45:00 DIS Inpatient GRISEL FRANKS DO [facility] LDRP BACK PAIN;LABOR [id number] 07/09/2016 06:40:00 07/09/2016 13:25:00 DIS Inpatient GRISEL FRANKS DO [facility] LDRP PROLONGED LATENT PHASE LABOR [id number] 07/10/2015 16:37:00 07/10/2015 18:03:00 DIS Emergency HOMA MURPHY, CHANDNI Campbell [facility] ER BLOOD IN STOOL [id number] 04/27/2015 12:17:00 04/30/2015 09:48:00 DIS Inpatient TRISTON MURPHY, CHARMAINE Prince [facility] 4TH CELLULITIS OF TORSO [id number] 04/20/2015 16:18:00 04/20/2015 16:46:00 DIS Emergency JUDITH WHITAKER APRN [facility] ER SPIDER BITE ON BACK CAUSING RASH [id number] 04/19/2014 15:38:00 04/19/2014 18:53:00 DIS Emergency JUDITH WHITAKER NOVELTY DIPPER [facility] ER [id number] 09/21/2017 10:40:00 ACT Inpatient OSCAR MOLINA DO [facility] 4TH SMALL BOWEL OBSTRUCTION [id number] 01/24/2017 03:25:00 Document Registration [id number] 07/23/2016 04:01:00 Document Registration [id number] 11/16/2014 14:17:00 Document Registration [id number] 09/16/2015 16:06:10 09/16/2015 23:59:59 CLS Outpatient Jessica Pinedo [id number] 09/01/2015 15:37:25 09/01/2015 23:59:59 CLS Outpatient Zhanna Mccray [id number] 04/21/2015 21:49:07 04/21/2015 23:59:59 CLS Outpatient Zhanna Mccray [id number] 06/13/2014 16:35:39 06/13/2014 23:59:59 CLS Outpatient Ant Barker [id number] 06/09/2014 22:24:55 06/09/2014 23:59:59 CLS Outpatient Franco Jad Batres [id number] 05/15/2014 17:02:41 05/15/2014 23:59:59 CLS Outpatient Ant Barker [id number] 04/23/2014 11:04:14 04/23/2014 23:59:59 CLS Outpatient Zhanna Mccray [id number] 12/19/2013 11:55:49 12/19/2013 23:59:59 CLS Outpatient Zhanna Mccray [id number] 09/07/2013 10:30:20 09/07/2013 23:59:59 CLS Outpatient Zhanna Mccray
[2017-09-22 19:49] VITALS: BP 116/57
--- NOTE | 2017-09-22 21:47 | Progress Note ---
Subjective Date Seen by Provider: Sep 22, 2017 Time Seen by Provider: 13:45 Subjective/Events-last exam abdomen is feeling better. passing flatus and had liquid stool. not having any nausea or emesis at this time. npo currently. Small bowel follow through no evidence of obstruction. denies fever sweats chills shortness of breath or chest pain. Objective Exam Vital Signs Date Time Temp Pulse Resp B/P (MAP) Pulse Ox O2 Delivery O2 Flow Rate FiO2 09/22/17 19:49 98.4 64 20 116/57 (76) 96 Room Air 09/22/17 16:00 98.4 67 20 117/65 (82) 97 Room Air 09/22/17 11:47 97.6 54 20 108/55 (72) 97 Room Air 09/22/17 07:21 96.1 57 20 154/55 (88) 96 Room Air 09/22/17 04:00 97.2 65 19 105/57 (73) 98 Room Air 09/22/17 00:00 97.8 66 18 109/58 (75) 97 Room Air I & O 09/22/17 07:00 Intake Total 3000 ml Output Total 750 ml Balance 2250 ml Capillary Refill : Less Than 3 Seconds General Appearance: No Apparent Distress HEENT: PERRL/EOMI, Normal ENT Inspection Neck: Normal Inspection, Non Tender Respiratory: No Accessory Muscle Use, No Respiratory Distress Cardiovascular: Regular Rate, Rhythm Gastrointestinal: distended (less), No guarding, No rebound Extremity: Normal Inspection Neurologic/Psychiatric: Alert, Oriented x3 Skin: Normal Color, Warm/Dry Lymphatic: No Adenopathy Results Lab Laboratory Tests 09/22/17 05:47: White Blood Count 5.9, Red Blood Count 4.61, Hemoglobin 12.4, Hematocrit 37, Mean Corpuscular Volume 81, Mean Corpuscular Hemoglobin 27, Mean Corpuscular Hemoglobin Concent 33, Red Cell Distribution Width 14.2, Platelet Count 200, Mean Platelet Volume 9.7, Neutrophils (%) (Auto) 60, Lymphocytes (%) (Auto) 30, Monocytes (%) (Auto) 9, Eosinophils (%) (Auto) 1, Basophils (%) (Auto) 0, Neutrophils # (Auto) 3.5, Lymphocytes # (Auto) 1.8, Monocytes # (Auto) 0.5, Eosinophils # (Auto) 0.1, Basophils # (Auto) 0.0, Sodium Level 134L, Potassium Level 3.9, Chloride Level 108H, Carbon Dioxide Level 17L, Anion Gap 9, Blood Urea Nitrogen 8, Creatinine 0.68, Estimat Glomerular Filtration Rate > 60, BUN/ Creatinine Ratio 12, Glucose Level 113H, Calcium Level 7.8L, Total Bilirubin 0.5 , Aspartate Amino Transf (AST/SGOT) 15, Alanine Aminotransferase (ALT/SGPT) 12, Alkaline Phosphatase 96, Total Protein 5.8L, Albumin 3.2 Assessment/Plan Assessment/Plan Assessment/Plan abdominal pain diffuse partial small bowel obstruction. small bowel follow through no evidence of obstruction and patient passing flatus and had bm. abdomen is less distended and no significant abdominal pain. will dc the ng tube and start on clears if continues to improve possibly home tomorrow. Clinical Quality Measures DVT/VTE Risk/Contraindication: RFS Level Per Nursing on Admit: 0=No Risk/No VTE PPX OSCAR MOLINA DO Sep 22, 2017 21:47
[2017-09-23] VITALS: BP 99/52
[2017-09-23] MEDS: D5 1/2 NS W/KCL 20 MEQ/L 1,000 ML IV SCH (06:51)
[2017-09-23 08:00] VITALS: BP 118/56
--- NOTE | 2017-09-23 09:13 | Discharge Inst-Simple/Standard ---
Discharge Inst-Standard Patient Instructions/Follow Up Plan of Care/Instructions/FU: 2 weeks [place] Activity as Tolerated: Yes Discharge Diet: Liquid Diet (slowly advance over next 2 days.) Other Inst to Patient Follow up Appt: Make appointment for 2 week. Any change notify physician at that time. Instructions: Make sure that you are walking. No strenuous activity. No Smoking Symptoms to Report: Appetite Changes, Extremity Discoloration, Numbness/Tingling, Swelling Increased , Bleeding Excessive, Eyesight Changes, Pain Increased, Urine Color Change, Constipation(Persistent), Fever over 101 degree F, Pain/Pressure in chest, Urinating Difficulty, Cough Up/Vomit Blood, Heart Beat Irreg/Pounding, Pain/ Pressure in jaw, Vaginal Bleeding Increase, Cramps in feet or legs, Lightheadedness, Pain/Pressure in shoulder, Diarrhea(Persistent), Memory Changes Suddenly, Questions/Concerns, Weight gain consecutive days, Dizziness/ Fainting, Nausea/Vomiting, Shortness of Breath, Weight gain over 2 pounds If questions or concerns contact your physician Or seek help at emergency department. OSCAR MOLINA DO Sep 23, 2017 09:13
--- NOTE | 2017-09-23 09:17 | Progress Note ---
Subjective Date Seen by Provider: Sep 23, 2017 Time Seen by Provider: 09:14 Subjective/Events-last exam No pain. Tolerating liquids. Having flatus and bm. Abdominal distention resolved. Not having any nausea vomiting fever sweats chills shortness of breath or chest pain. Objective Exam Vital Signs Date Time Temp Pulse Resp B/P (MAP) Pulse Ox O2 Delivery O2 Flow Rate FiO2 09/23/17 00:00 98.6 62 17 99/52 (68) 96 Room Air 09/22/17 19:49 98.4 64 20 116/57 (76) 96 Room Air 09/22/17 16:00 98.4 67 20 117/65 (82) 97 Room Air 09/22/17 11:47 97.6 54 20 108/55 (72) 97 Room Air I & O 09/23/17 07:00 Intake Total 3360 ml Output Total 1950 ml Balance 1410 ml Capillary Refill : Less Than 3 Seconds General Appearance: No Apparent Distress HEENT: PERRL/EOMI, Normal ENT Inspection Neck: Normal Inspection, Non Tender Respiratory: No Accessory Muscle Use, No Respiratory Distress Cardiovascular: Regular Rate, Rhythm Gastrointestinal: No distended (resolved), No guarding, No rebound Extremity: Normal Inspection Neurologic/Psychiatric: Alert, Oriented x3 Skin: Normal Color, Warm/Dry Lymphatic: No Adenopathy Assessment/Plan Assessment/Plan Assessment/Plan abdominal pain diffuse partial small bowel obstruction. small bowel follow through no evidence of obstruction and patient passing flatus and had bm. abdomen is less distended and no significant abdominal pain. will dc the ng tube and start on clears if continues to improve possibly home tomorrow. Clinical Quality Measures DVT/VTE Risk/Contraindication: RFS Level Per Nursing on Admit: 0=No Risk/No VTE PPX OSCAR MOLINA DO Sep 23, 2017 09:16
[2017-09-23] MEDS: PANTOPRAZOLE 40 MG/10 ML (PROTONIX) VIAL IV SCH (09:18)
--- NOTE | 2017-09-24 02:24 | DISCHARGE SUMMARY ---
DATE OF SERVICE: ADMITTING DIAGNOSES: Abdominal pain diffuse, partial small bowel obstruction. ADMITTING PHYSICIAN: Oscar Stark DO. HOSPITAL COURSE: The patient is a 22-year-old female with previous multiple abdominal surgeries. She presented with abdominal pain and abdominal distention on 09/21/2017. The patient states she had been having pain since the night before. The patient had a workup with imaging suggestive of a partial small bowel obstruction. The patient had an NG tube placed, was placed at lower intermittent wall suction. On 09/22/2017, she had a small bowel follow through performed, which contrast made its way into the colon in approximately 2 hours with no evidence of obstruction at that time. So, the NG tube was removed. The patient had began passing flatus and having a bowel movement. The patient was placed on a liquid diet and see how she tolerated. The patient has been tolerating a liquid diet and is not having any new abdominal pain now at this time. The patient is wanting to go home, which I agree with. She is being discharged home on a liquid diet and slowly advanced over the next couple days. The patient to have followup with myself in two weeks. If she has any problems prior to that, she is to notify her physician or myself at that time. The patient is being discharged on ferrous sulfate 325 mg tablets. See discharge documentation sheet on the computer for further information. Job ID: [id number] DocumentID: [id number] Dictated Date: 09/23/2017 09:21:34 Electroplater Apprentice Date: 09/24/2017 02:23:33 Dictated By: OSCAR STARK DO
== END 2017-09-23 10:01 | disposition home or self-care (01) | DRG 390 ==
LOC: EDUNIT# 09:31 → ER 09:33 → 4TH 10:40
PROVIDERS: ADMIT Surgery; ATTEND Surgery
DX: K56.600 Partial intestinal obstruction, unspecified as to cause (principal)
CPT/HCPCS: 36415; 74022; 74177; 74250; 80053; 81000; 82150; 83690; 84703; 85025; 96361; 96374; 96375; 96376

== ENCOUNTER → 2017-12-22 | Outpatient (CLI) | payer BC ==
[~2017-12-22] VITALS: Ht 165.1 cm; Wt 81.6 kg
[~2017-12-22] MED LIST changes: +FERR-84 PO; +IRON DEXTRAN 1,000 MG/NS 250 ML IVPB IV ONE; +IRON DEXTRAN 25 MG/NS 6.25 ML TOTAL VOLUME IV ONE; +IRON SUPPLEMENT
[2017-12-22 13:10] VITALS: BP 122/72
[2017-12-22 15:00] VITALS: BP 122/72
== END ==
LOC: SDC 12:29
PROVIDERS: ATTEND Internal Medicine
DX: D50.9 Iron deficiency anemia, unspecified (principal); Z88.5 Allergy status to narcotic agent
CPT/HCPCS: 96365; 96366

== ENCOUNTER 2021-08-20 09:07 | Outpatient (CLI) | payer BC ==
[~2021-08-20] VITALS: Ht 170.2 cm; Wt 89.4 kg
[~2021-08-20 09:07] MED LIST changes: -IRON DEXTRAN 1,000 MG/NS 250 ML IVPB IV ONE; -IRON DEXTRAN 25 MG/NS 6.25 ML TOTAL VOLUME IV ONE; -SULF1TAB35 PO; +SULF1TAB38 PO
[2021-08-20] MEDS ORDERED: ACETAMINOPHEN 500 MG TAB (TYLENOL) PO PRN (09:30)
[2021-08-20] MEDS ORDERED: BAMLANIVIMAB 700 MG/ETESEVIMAB 1,400 MG IN NS IV ONE ×3 (09:30)
[2021-08-20] MEDS ORDERED: ONDANSETRON 4 MG/2 ML (SDV) Z0FRAN IV PRN (09:30)
[2021-08-20] MEDS ORDERED: EPINEPHrine INJECTION 1 MG/ML AMP IM PRN (09:30)
[2021-08-20] MEDS ORDERED: diphenhydrAMINE 50 MG/ML INJ (BENADRYL) IV PRN (09:30)
[2021-08-20 10:57] VITALS: BP 113/69
== END 2021-08-20 11:00 | disposition home or self-care (01) ==
LOC: INFUSION 09:07
PROVIDERS: ATTEND Physician Assistant
DX: U07.1 COVID-19 (principal)

== ENCOUNTER 2021-10-06 09:44 | Emergency (ER) | payer BC ==
[~2021-10-06] VITALS: Ht 170 cm; Wt 88.0 kg
[2021-10-06] MEDS ORDERED: fentaNYL INJ 100 MCG/2 ML AMP IVP STA (11:03)
--- NOTE | 2021-10-06 11:08 | ED Abdominal Pain ---
General Chief Complaint: Abdominal/GI Problems Stated Complaint: ABD PAIN Nursing Triage Note: AMB TO ROOM WITH C/O EPIGASTRIC PAIN ONSET TUESDAY. THAT HAS RESOLVED. YESTERDAY STARTED WITH EPIGASTRIC PAIN YESTERDAY WAS GIVEN RX BY [facility] FOR THE EPIGASTRIC. WAS COVID POS 1 MONTH AGO. Source of Information: Patient Exam Limitations: No Limitations History of Present Illness Date Seen by Provider: Oct 06, 2021 Time Seen by Provider: 11:05 Initial Comments Patient is a 26-year-old female with a history of small bowel obstruction, cholecystectomy who presents ED with mid upper abdominal pain. Described as sharp and constant. Worse after eating or drinking. Symptoms started on Tuesday after eating fast food within 2 hours. Started vomiting several times with diarrhea. That has resolved but this pain has been continuous. She reports history of bowel obstruction with surgical resection. Patient denies taking medication. Denies any cough, runny nose, sore throat, dysuria. Not currently on her menstrual cycle. No urinary symptoms. No vaginal bleeding or vaginal discharge. She states the pain appears to be worsening. She reports multiple hernias repair in her abdomen. Allergies and Home Medications Allergies Coded Allergies: morphine (Verified Allergy, Unknown, 07/23/16) Patient Home Medication List Home Medication List Reviewed: Yes Ferrous Sulfate (Iron) 325 Mg Tablet, 325 MG PO DAILY, (Reported) Entered as Reported by: KATHRINE WAYNE on 09/21/17 1318 Ondansetron (Ondansetron Odt) 4 Mg Tab.rapdis, 4 MG PO Q6H PRN for NAUSEA/VOMITING-1ST LINE Prescribed by: ROD BLANKENSHIP on 10/06/21 1350 Pantoprazole Sodium (Protonix) 40 Mg Tablet.dr, 40 MG PO DAILY Prescribed by: ROD BLANKENSHIP on 10/06/21 1350 Review of Systems Review of Systems Constitutional: No chills, No diaphoresis, No fever, No malaise EENTM: No Eye Pain, No Ear Drainage, No Ear Pain, No Mouth Pain Respiratory: Denies Cough, Denies Orthopnea, Denies SOA With Exertion Cardiovascular: Denies Chest Pain Gastrointestinal: Abdominal Pain, Diarrhea, Nausea, Vomiting Genitourinary: Denies Burning, Denies Discharge Musculoskeletal: No back pain, No joint pain Skin: No change in color, No change in hair/nails Psychiatric/Neurological: Denies Headache, Denies Numbness All Other Systems Reviewed Negative Unless Noted: Yes Past Gjenxcp-Bkubin-Wdlyzt Hx Patient Social History Tobacco Use?: No Substance use?: No Immunizations Up To Date Tetanus Booster (TDap): Unknown PED Vaccines UTD: No Seasonal Allergies Seasonal Allergies: No Past Medical History Surgeries: Yes Abdominal, Bowel Surgery, Eye Surgery, Gallbladder, Oophorectomy Respiratory: No Cardiac: No Neurological: No Reproductive Disorders: No Female Reproductive Disorders: Denies, Ovarian Cyst Sexually Transmitted Disease: No HIV/AIDS: No Genitourinary: No Gastrointestinal: Yes Abdominal Hernia, Gastroesophageal Reflux, Obstructive Bowel, Gall Bladder Dise ase Musculoskeletal: No Endocrine: No 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 0.0oz. 81.384790wx; 30.00 BMI Method:Estimated General Appearance: WD/WN, no apparent distress HEENT: PERRL/EOMI, normal ENT inspection, TMs normal, pharynx normal Neck: non-tender, full range of motion, supple, normal inspection Respiratory: chest non-tender, lungs clear, normal breath sounds, no respiratory distress, no accessory muscle use Cardiovascular: regular rate, rhythm, no edema, no gallop, no JVD Gastrointestinal: normal bowel sounds, non tender, no organomegaly, no pulsatile mass, tenderness (Mid epigastric tenderness. No palpable hernias. Normal bowel sounds.) Extremities: normal range of motion, non-tender, normal inspection, no pedal edema, no calf tenderness Back: normal inspection, no CVA tenderness, no vertebral tenderness Neurologic/Psychiatric: tnt line supervisor II-XII nml as tested, no motor/sensory deficits, alert, normal mood/affect, oriented x 3 Progress/Results/Core Measures Results/Orders Lab Results Laboratory Tests Test 10/06/21 11:26 10/06/21 12:28 Range/Units White Blood Count 6.1 4.3-11.0 10^3/uL Red Blood Count 5.05 3.80-5.11 10^6/uL Hemoglobin 13.4 11.5-16.0 g/dL Hematocrit 42 35-52 % Mean Corpuscular Volume 82 80-99 fL Mean Corpuscular Hemoglobin 27 25-34 pg Mean Corpuscular Hemoglobin Concent 32 32-36 g/dL Red Cell Distribution Width 14.5 10.0-14.5 % Platelet Count 210 130-400 10^3/uL Mean Platelet Volume 8.7 L 9.0-12.2 fL Immature Granulocyte % (Auto) 0 % Neutrophils (%) (Auto) 52 42-75 % Lymphocytes (%) (Auto) 37 12-44 % Monocytes (%) (Auto) 10 0-12 % Eosinophils (%) (Auto) 1 0-10 % Basophils (%) (Auto) 0 0-10 % Neutrophils # (Auto) 3.2 1.8-7.8 10^3/uL Lymphocytes # (Auto) 2.3 1.0-4.0 10^3/uL Monocytes # (Auto) 0.6 0.0-1.0 10^3/uL Eosinophils # (Auto) 0.0 0.0-0.3 10^3/uL Basophils # (Auto) 0.0 0.0-0.1 10^3/uL Immature Granulocyte # (Auto) 0.0 0.0-0.1 10^3/uL Sodium Level 139 135-145 MMOL/L Potassium Level 3.6 3.6-5.0 MMOL/L Chloride Level 105 98-107 MMOL/L Carbon Dioxide Level 21 21-32 MMOL/L Anion Gap 13 5-14 MMOL/L Blood Urea Nitrogen 12 7-18 MG/DL Creatinine 0.82 0.60-1.30 MG/DL Estimat Glomerular Filtration Rate 100 BUN/Creatinine Ratio 15 Glucose Level 98 70-105 MG/DL Calcium Level 8.7 8.5-10.1 MG/DL Corrected Calcium 8.8 8.5-10.1 MG/DL Total Bilirubin 0.4 0.1-1.0 MG/DL Aspartate Amino Transf (AST/SGOT) 22 5-34 U/L Alanine Aminotransferase (ALT/SGPT) 23 0-55 U/L Alkaline Phosphatase 109 40-136 U/L Total Protein 7.0 6.4-8.2 GM/DL Albumin 3.9 3.2-4.5 GM/DL Lipase 19 8-78 U/L Urine Color YELLOW Urine Clarity CLEAR Urine pH 7.0 5-9 Urine Specific [place] <=1.005 1.016-1.022 Urine Protein NEGATIVE NEGATIVE Urine Glucose (UA) NEGATIVE NEGATIVE Urine Ketones NEGATIVE NEGATIVE Urine Nitrite NEGATIVE NEGATIVE Urine Bilirubin NEGATIVE NEGATIVE Urine Urobilinogen 0.2 < = 1.0 MG/DL Urine Leukocyte Esterase NEGATIVE NEGATIVE Urine RBC (Auto) NEGATIVE NEGATIVE Urine RBC NONE /HPF Urine WBC 5-10 H /HPF Urine Squamous Epithelial Cells 10-25 H /HPF Urine Crystals PRESENT H /LPF Urine Calcium Oxalate Crystals RARE H /LPF Urine Bacteria FEW H /HPF Urine Casts NONE /LPF Urine Mucus NEGATIVE /LPF Urine Culture Indicated YES Urine Test NEGATIVE NEGATIVE My Orders Orders - MANPREET ELIZONDO Cbc With Automated Diff (10/06/21 11:03) Comprehensive Metabolic Panel (10/06/21 11:03) Lipase (10/06/21 11:03) Ua Culture If Indicated (10/06/21 11:03) Hcg,Qualitative Urine (10/06/21 11:03) Ondansetron Injection (Zofran Injectio (10/06/21 11:15) Fentanyl Inj (Sublimaze Injection) (10/06/21 11:03) Ct Abdomen/Pelvis W (10/06/21 11:03) Iohexol Injection (Omnipaque 350 Mg/Ml 1 (10/06/21 11:15) Received Contrast (Hold Metformin- Contr (10/06/21 11:15) Ns (Ivpb) (Sodium Chloride 0.9% Ivpb Bag (10/06/21 11:15) Urine Culture (10/06/21 12:28) Medications Given in ED Current Medications Medications Dose Ordered Sig/Roma Route Start Time Stop Time Status Last Admin Dose Admin Iohexol 100 ml ONCE ONCE IV 10/06/21 11:15 10/06/21 11:16 DC 10/06/21 12:22 100 ML Ondansetron HCl 4 mg ONCE ONCE IVP 10/06/21 11:15 10/06/21 11:16 DC 10/06/21 11:31 4 MG Sodium Chloride 100 ml ONCE ONCE IV 10/06/21 11:15 10/06/21 11:16 DC 10/06/21 12:22 80 ML Vital Signs/I&O 10/06/21 10:27 Pulse 76 Resp 18 B/P (MAP) 110/78 (89) Pulse Ox 98 Blood Pressure Mean: 89 Departure Communication (Admissions) Patient vital signs stable. Mid upper abdominal pain. History of cholecystectomy. History of multiple bowel obstructions secondary to previous surgery when she was younger. Patient concern for obstruction. She states vomiting diarrhea has improved. Lab work was otherwise unremarkable. No current urinary symptoms. Urinalysis positive for squamous cells small amount leukocytes however due to no current urinary symptoms with out much lower abdominal discomfort recommend culture before treating. Negative for . CT abdomen pelvis concerning for infectious versus inflammatory process. No known history inflammatory bowel disease. Patient in no acute distress. Patient was given IV pain medication with Remitar p.o. fluids. Discharged with Protonix, nausea medication. Recommend probiotics. Likely viral with resulting gastritis. If any worsening symptoms return back to ED for further evaluation. Patient agrees with plan of action. Impression Primary Impression: Abdominal pain Disposition: 01 HOME, SELF-CARE Condition: Stable Departure-Patient Inst. Decision time for Depature: 13:49 Referrals: GISELE POPE DO (PCP/Family) Primary Care Physician Patient Instructions: Abdominal Pain, Adult ED Scripts Ondansetron (Ondansetron Odt) 4 Mg Tab.rapdis 4 MG PO Q6H PRN for NAUSEA/VOMITING-1ST LINE, #10 TAB Prov: MANPREET ELIZONDO 10/06/21 Pantoprazole Sodium (Protonix) 40 Mg Tablet. 40 MG PO DAILY for 20 Days, #20 TAB Prov: MANPREET ELIZONDO 10/06/21 MANPREET ELIZONDO Oct 06, 2021 11:08
[2021-10-06] MEDS ORDERED: ONDANSETRON 4 MG/2 ML (SDV) Z0FRAN IVP ONE (11:15)
[2021-10-06] MEDS ORDERED: HOLD METFORMIN - RECEIVED CONTRAST 20 ML VIAL IV SCH ×2 (11:15→11:45)
[2021-10-06] MEDS ORDERED: IOHEXOL 350 MG/ML 100 ML (OMNIPAQUE 350) VIAL IV ONE ×2 (11:15→11:45)
[2021-10-06] MEDS ORDERED: NS 100 ML (IVPB) BAG IV ONE ×2 (11:15→11:45)
[2021-10-06 11:29] LABS: BASOPHILS % (AUTO) 0 % (0-10); EOSINOPHILS % (AUTO) 1 % (0-10); HEMATOCRIT 42 % (35-52); HEMOGLOBIN 13.4 g/dL (11.5-16.0); LYMPHOCYTES # (AUTO) 2.3 10^3/uL (1.0-4.0); LYMPHOCYTES % (AUTO) 37 % (12-44); MEAN CORPUSCULAR HEMOGLOBIN 27 pg (25-34); MEAN CORPUSCULAR HGB CONC 32 g/dL (32-36); MEAN CORPUSCULAR VOLUME 82 fL (80-99); MEAN PLATELET VOLUME 8.7 fL (9.0-12.2); MONOCYTES # (AUTO) 0.6 10^3/uL (0.0-1.0); MONOCYTES % (AUTO) 10 % (0-12); NEUTROPHILS # (AUTO) 3.2 10^3/uL (1.8-7.8); NEUTROPHILS % (AUTO) 52 % (42-75); PLATELET COUNT 210 10^3/uL (130-400); WHITE BLOOD COUNT 6.1 10^3/uL (4.3-11.0)
[2021-10-06 11:44] LABS: ALBUMIN 3.9 GM/DL (3.2-4.5); POTASSIUM 3.6 MMOL/L (3.6-5.0)
[2021-10-06 11:46] LABS: CALCIUM 8.7 MG/DL (8.5-10.1)
[2021-10-06 11:49] LABS: BILIRUBIN,TOTAL 0.4 MG/DL (0.1-1.0)
[2021-10-06 11:50] LABS: CREATININE SERUM 0.82 MG/DL (0.60-1.30)
--- NOTE | 2021-10-06 12:38 | Diagnostic Imaging Report ---
PROCEDURE: CT abdomen and pelvis with contrast. TECHNIQUE: Multiple contiguous axial images were obtained through the abdomen and pelvis after administration of intravenous contrast. Auto Exposure Controls were utilized during the CT exam to meet ALARA standards for radiation dose reduction. All CT scans use one or more of the following dose optimizing techniques: Automated exposure control, MA and/or KvP adjustment based on patient size and exam type or iterative reconstruction. INDICATION: Epigastric pain. Vomiting. Diarrhea. COMPARISON: 09/21/2017. FINDINGS: Included portions of the lung bases are clear. CT ABDOMEN: There is fairly diffuse mucosal thickening and hyperenhancement of the small bowel. Multiple air-fluid levels are also seen scattered throughout. Similar appearance is also noted involving the ascending and transverse portions of the colon. Normal appendix cannot be adequately identified. Patient is status post previous partial small bowel resection. There is focal dilatation adjacent to the surgical suture material. This is not atypical. There is otherwise no evidence of small bowel obstruction. Note is also made of mild stranding of the mesenteric fat diffusely. There is combing of the mesenteric vessels. Additionally, there are multiple mildly prominent mesenteric lymph nodes throughout. Largest is just to the left lateral of the superior mesenteric vein and measures 1.4 x 1.4 cm. No abnormal retroperitoneal adenopathy is seen. Kidneys, adrenal glands, spleen, and pancreas have a normal CT appearance. Liver is diffusely hypodense on this postcontrast exam suggestive of hepatic steatosis. No focal hepatic lesions are seen. There is a small amount of free fluid within the pelvis. There is no loculated fluid collection or free air within the abdomen or pelvis. Osseous structures show no acute abnormalities. CT PELVIS: Again, there is a small amount of free fluid. There is no loculated fluid collection or free air. Urinary bladder is unopacified. No calculi are seen within the urinary bladder. No abnormal pelvic lymph nodes are seen. Osseous structures show no acute abnormalities. IMPRESSION: 1. Diffusely abnormal appearance to the small bowel and proximal colon. There is also associated stranding of the mesenteric fat with multiple mildly prominent mesenteric lymph nodes. Findings are nonspecific, but raise concern for infectious or inflammatory enterocolitis. 2. Small amount of free fluid within the pelvis. No loculated fluid collection, pneumatosis, pneumoperitoneum, nor portal venous gas. 3. Probable hepatic steatosis. Dictated by: Dictated on workstation # [id number]
[2021-10-06 13:34] LABS: BILIRUBIN,URINE NEGATIVE (NEGATIVE); CLARITY,URINE CLEAR; COLOR,URINE YELLOW; GLUCOSE, URINE (UA) NEGATIVE (NEGATIVE); KETONES,URINE NEGATIVE (NEGATIVE); LEUKOCYTE ESTERASE ,URINE NEGATIVE (NEGATIVE); NITRITE,URINE NEGATIVE (NEGATIVE); PROTEIN,URINE NEGATIVE (NEGATIVE)
[2021-10-06 13:49] LABS: BACTERIA,URINE FEW /HPF
[2021-10-06 13:50] LABS: CALCIUM OXALATE CRYSTALS,UR RARE /LPF
[2021-10-06] MEDS ORDERED: ONDA4TAB11 PO (13:50)
[2021-10-06] MEDS ORDERED: PANT40TA2 PO (13:50)
[2021-10-06 14:04] VITALS: BP 127/77
== END 2021-10-06 14:04 | disposition home or self-care (01) ==
LOC: EDUNIT# 09:44 → ER 09:47
DX: R10.13 Epigastric pain (principal); K21.9 Gastro-esophageal reflux disease without esophagitis
CPT/HCPCS: 36415; 74177; 80053; 81000; 83690; 84703; 85025; 87088

== ENCOUNTER → 2022-11-17 | Outpatient (CLI) | payer BC ==
[~2022-11-17] MED LIST changes: +ONDA4TAB11 PO; +PANT40TA2 PO
== END ==
LOC: CARD 13:37
PROVIDERS: ATTEND Internal Medicine
DX: R00.0 Tachycardia, unspecified (principal)
CPT/HCPCS: 93005

== ENCOUNTER → 2022-11-22 | Outpatient (CLI) | payer BC | LOC: CARD 07:55 | PROVIDERS: ATTEND Internal Medicine | DX: R00.0 Tachycardia, unspecified (principal) | CPT/HCPCS: 93225; 93226 ==

== ENCOUNTER → 2023-01-11 | Outpatient (CLI) | payer BC | LOC: CARD 12:38 | PROVIDERS: ATTEND Internal Medicine Cardiovascular Disease | DX: R07.9 Chest pain, unspecified (principal) | CPT/HCPCS: 93306 ==

== ENCOUNTER → 2023-01-19 | Outpatient (CLI) | payer BC ==
[2023-01-19 14:40] VITALS: BP 130/69
--- NOTE | 2023-01-19 16:17 | Cardiology Stress Test Report ---
Stress Test Report Date of Procedure/Referring: Date of Procedure: January 19, 2023 PCP Tessie Mcgowan DO Admitting Physician Admitting Physician: Attending Physician: Ángel Orellana MD Indications: Palp Baseline Heart Rate: 70 Baseline Blood Pressure: Blood Pressure Systolic: 130 Blood Pressure Diastolic: 69 Baseline EKG: Baseline EKG: NSR Summary/Conclusion: Summary: In summary, the patient started exercising with a baseline heart rate, blood pressure and EKG mentioned above Patient was able to exercise for a total of 7 minutes on Kai protocol, METs 8.5 Maximum heart rate 180 Maximum blood pressure 139/82 Stress EKG, Minimal nondiagnostic changes Recovery EKG , Return to baseline Conclusion: 1. Good exercise tolerance for a total of 7 minutes on Kai protocol, 8.5 METs, achieving 93 percent of maximum expected heart rate 2. Minimal nondiagnostic EKG changes with exercise returned to baseline during recovery 3. No arrhythmia was noted Copy Copies To 1: TESSIE MCGOWAN BASHAR J MD January 19, 2023 16:17
== END ==
LOC: CARD 14:13
PROVIDERS: ATTEND Internal Medicine Cardiovascular Disease
DX: R00.2 Palpitations (principal)
CPT/HCPCS: 93017

== ENCOUNTER → 2023-05-26 | Outpatient (CLI) | payer BC ==
--- NOTE | 2023-05-26 14:12 | Diagnostic Imaging Report ---
PROCEDURE: Pelvic comp/transvaginal sonogram. TECHNIQUE: Complete transabdominal and transvaginal pelvic ultrasound was performed. In addition, limited pelvic Doppler was performed. INDICATION: Pelvic pain and heavy menses. Patient has had a prior right oophorectomy. Uterus is anteverted measuring 9.0 x 5.3 x 5.8 cm. Endometrium is 11 mm in thickness. No myometrial mass is identified. The right ovary is surgically absent. The left ovary measures 4.1 x 2.4 x 3.0 cm. The left ovary contains multiple follicles. The left ovary also contains a 17 mm cyst. There is blood flow to the left ovary. No adnexal mass or free fluid is detected. IMPRESSION: 1. Status post right oophorectomy. 2. 17 mm left ovarian cyst. Dictated by: Dictated on workstation # [id number]
== END ==
LOC: RAD 12:14
PROVIDERS: ATTEND Internal Medicine
DX: N83.202 Unspecified ovarian cyst, left side (principal); Z90.721 Acquired absence of ovaries, unilateral
CPT/HCPCS: 76830; 76856